=== PATIENT | male | born 1950 | race Caucasian/White ===

== ENCOUNTER 2016-09-16 08:20 | Inpatient (IN) ==
--- NOTE | 2016-09-16 08:26 | Emergency Department Note ---
Weakness HPI - General Chief complaint: Weakness Stated complaint: Weakness Source: patient Mode of arrival: ambulatory Limitations: no limitations - Related Data Home Medications Medication Instructions Recorded Confirmed ibuprofen PO .COMPLEX PRN 11/03/15 09/07/16 Previous Rx's Medication Instructions Recorded Compression Stockings #2 each 02/19/16 amlodipine 10 mg tablet 10 mg PO QDAY 90 Days 08/24/16 lisinopril 10 mg tablet 10 mg PO QDAY 90 Days 08/24/16 tadalafil 5 mg tablet 5 mg PO ONCE #30 tab 09/08/16 Allergies Allergy/AdvReac Type Severity Reaction Status Date / Time Amoxicillin [From Augmentin] AdvReac jittery Verified 09/16/16 08:25 clavulanic acid AdvReac jittery Verified 09/16/16 08:25 [From Augmentin] narcotics AdvReac lightheaded Uncoded 09/07/16 11:36 Past Medical History - Past Medical History Medical history: Reports: hypertension, other (Hyperkalemia, chronic headaches, Ed, BPH, hypertension, gout,) Surgical history ED: Reports: non-contributory Family history: Reports: CAD/TX (father), diabetes (father mother), hypertension (father), CVA/Stroke (father) - Social History smoking status: Former smoker Alcohol use: Reports: Occasionally Drug use: Reports: none Physical Exam - General Limitations: no limitations Course Vital Signs Temperature 98.7 F 09/16/16 08:21 Pulse Rate 120 H 09/16/16 08:21 Respiratory Rate 14 09/16/16 08:21 Blood Pressure 127/86 09/16/16 08:21 Pulse Oximetry (%) 96 09/16/16 08:21 Temperature 98.7 F 09/16/16 08:21 Pulse Rate 120 H 09/16/16 08:21 Respiratory Rate 14 09/16/16 08:21 Blood Pressure 127/86 09/16/16 08:21 Pulse Oximetry (%) 96 09/16/16 08:21 Disposition Pt seen by EMBEDDED SOFTWARE DEVELOPMENT ENGINEER/PA only: No Referrals: Cal Leiva MD [Primary Care Provider] -
[2016-09-16] MEDS ORDERED: 0.9 % SODIUM CHLORIDE 1,000 ML IV ONE ×3 (08:59→13:47)
[2016-09-16 10:06] LABS: ALT/SGPT 20 U/l (0-40); Albumin 4.4 gm/dL (3.2-5.2); Albumin/Globulin Ratio 1.8 (1.0-2.3); Alkaline Phosphatase 87 U/L (39-117); Blood Urea Nitrogen 26 mg/dl (8-23)
[2016-09-16 10:11] LABS: C-Reactive Protein 29.1 mg/dl (0.0-0.8)
[2016-09-16 10:13] LABS: Mean Cell Volume 83.7 fL (80.0-100.0); Mean Corpuscular Hemoglobin 27.6 pg (26.0-34.0); Platelet Count 204 K/mcL (140-440); RBC 5.35 M/mcL (4.50-5.90); Red Cell Distribution Width 13.7 % (11.5-14.5)
[2016-09-16 10:46] LABS: Band Neutrophils % 11 % (0-10); Lymphocytes % 7 % (15-49); Monocytes % (Manual) 8 % (1-12); Platelet Estimate NORMAL (NORMAL); RBC Morphology NORMAL (NORMAL); Segmented Neutrophils % 74 % (38-78)
--- NOTE | 2016-09-16 10:56 | Cat Scan Report ---
CLINICAL INFORMATION: Left lower quadrant pain COMPARISON: None. TECHNIQUE: 2.5 mm helical slices were obtained from the mid heart through the subtrochanteric regions. Following reconstruction, 2.5 mm sagittal, coronal and axial reformatted images were processed and reviewed at bone, lung and soft tissue windows. FINDINGS: Lung bases show no abnormality - no effusion. Visualized heart is unremarkable. Images through the abdomen show the noncontrasted gallbladder and bile ducts, liver, both adrenal glands, spleen, pancreas and aorta are normal in size, configuration and attenuation without focal lesion. Both noncontrasted kidneys are normal and symmetric in size, position, configuration and attenuation: The right is 11.6 x 4.8 cm and the left is 11.7 x 4.9 cm. There are no solid/cystic lesions in the noncontrasted kidneys and no evidence of stone or hydronephrosis. The upper collecting systems and ureters are normal. Images through the pelvis show massive enlargement of the prostate spanning 10.2 x 8 x 11 cm. Mild diffuse wall thickening and urinary bladder is compatible chronic bladder outlet obstruction. There is a 17 mm stellate stone within the left bladder base and adjacent 6 mm bladder stone. Multiple sigmoid diverticuli noted, but no definite CT evidence for diverticulitis. The remaining colon, including the appendix, small bowel and stomach are grossly normal. There is a 7.5 cm right inguinal hernia containing only mesenteric fat. Bone windows show only degenerative changes in the lumbar spine - no focal osseous lesion IMPRESSION: 1. Sigmoid diverticulosis, but no CT evidence for diverticulitis. Mild early diverticulitis may be CT occult 2. Massive prostate enlargement with mild diffuse urinary bladder wall thickening suggesting chronic bladder outlet obstruction. There are two stones within the urinary bladder, 17 mm and 6 mm respectively. Suspect this may be the etiology of patient's pain Interpreted and Authenticated by: Golden Garcia 09/16/16
--- NOTE | 2016-09-16 11:52 | Emergency Department Note ---
Weakness HPI - General Source: patient Mode of arrival: ambulatory Limitations: no limitations <Stewart Oneil - Last Filed: 09/16/16 19:40> <Zaheer Edmond - Last Filed: 09/17/16 01:48> - General Chief complaint: Weakness Stated complaint: Weakness Time Seen by Provider: 09/16/16 08:30 - History of Present Illness HPI Narrative: This is a 66-year-old male who presents today with abdominal pain in the stomach area left lower quadrant, and weakness for the last 5 days. He describes fevers and chills during this time, significant decrease in appetite but no nausea or vomiting. He describes pain on drinking even small amounts of fluids. (Stewart Oneil) - Related Data Previous Rx's Medication Instructions Recorded amlodipine 10 mg tablet 10 mg PO QDAY 90 Days 08/24/16 lisinopril 10 mg tablet 10 mg PO QDAY 90 Days 08/24/16 Allergies Allergy/AdvReac Type Severity Reaction Status Date / Time Amoxicillin [From Augmentin] AdvReac jittery Verified 09/16/16 08:25 clavulanic acid AdvReac jittery Verified 09/16/16 08:25 [From Augmentin] narcotics AdvReac lightheaded Uncoded 09/07/16 11:36 Review of Systems All systems ED: reviewed and negative except as stated. Constitutional: Denies: fever, chills Cardiovascular: Denies: chest pain, dyspnea on exertion, edema Respiratory: Denies: cough, dyspnea Gastrointestinal: Reports: abdominal pain, diarrhea, constipation (last bowel movement 3 days ago) Genitourinary: Reports: dysuria, hematuria <Stewart Oneil - Last Filed: 09/16/16 19:40> Past Medical History - Past Medical History Medical history: Reports: hypertension, other (Hyperkalemia, chronic headaches, Ed, BPH, hypertension, gout,) Surgical history ED: Reports: non-contributory, other (hydrocele) - Social History smoking status: Former smoker Alcohol use: Reports: Occasionally Drug use: Reports: none <Stewart Oneil - Last Filed: 09/16/16 19:40> Physical Exam - General Limitations: no limitations General appearance: alert, in no apparent distress - Head Head exam: atraumatic, normocephalic - Eye Eye exam: Present: normal appearance, PERRL, EOMI. Absent: scleral icterus, conjunctival injection - ENT ENT exam: mucous membranes moist - Neck Neck exam: Present: normal inspection, trachea midline. Absent: lymphadenopathy - Chest Chest inspection: Present: symmetric chest wall rise - Respiratory Respiratory exam: Present: normal lung sounds bilaterally. Absent: respiratory distress - Cardiovascular Cardiovascular exam: Present: regular rate, normal rhythm - Abdominal Exam Abdominal exam: Present: soft, tenderness. Absent: rebound, rigidity Abdominal tenderness: Present: LLQ (without peritoneal signs), epigastrium, moderate - Neurological Exam Neurological exam: Present: alert, oriented X3 - Skin Skin exam: Present: warm (febrile feeling), dry, intact <Stewart Oneil - Last Filed: 09/16/16 19:40> Course <Stewart Oneil - Last Filed: 09/16/16 19:40> <Zaheer Edmond - Last Filed: 09/17/16 01:48> Course Narrative: Patient was interviewed and examined by myself. I agree with the documentation herein, including assessment and plans, as recorded by Stewart Oneil, MS-IV. (Zaheer Edmond) Vital Signs Temperature 98.7 F 09/16/16 08:21 Pulse Rate 120 H 09/16/16 08:21 Respiratory Rate 14 09/16/16 08:21 Blood Pressure 127/86 09/16/16 08:21 Pulse Oximetry (%) 96 09/16/16 08:21 Temperature 100.8 F H 09/16/16 23:44 Pulse Rate 101 H 09/16/16 23:44 Respiratory Rate 16 09/16/16 23:44 Blood Pressure 137/92 09/16/16 23:44 Pulse Oximetry (%) 92 09/16/16 23:44 Weakness - Lab Data Result diagrams: 09/16/16 09:00 09/16/16 09:00 <Stewart Oneil - Last Filed: 09/16/16 19:40> - Lab Data Result diagrams: 09/16/16 09:00 09/16/16 09:00 <Zaheer Edmond - Last Filed: 09/17/16 01:48> - Lab Data Lab Results 09/16/16 09/16/16 09/16/16 Range/Units 09:00 09:00 09:00 WBC 17.4 H (4.5-11.0) K/mcL RBC 5.35 (4.50-5.90) M/mcL Hgb 14.8 (13.5-16.5) g/dL Hct 44.7 (41.0-55.0) % POC Hct 44.0 (41.0-55.0) % MCV 83.7 (80.0-100.0) fL MCH 27.6 (26.0-34.0) pg MCHC 33.0 (31.0-36.0) g/dL RDW 13.7 (11.5-14.5) % Plt Count 204 (140-440) K/mcL MPV 9.7 (7.4-10.4) fL Total Counted 100 Seg Neutrophils % 74 (38-78) % Band Neutrophils % 11 H (0-10) % Lymphocytes % 7 L (15-49) % Monocytes % (Manual) 8 (1-12) % Platelet Estimate Normal (NORMAL) RBC Morphology Normal (NORMAL) VBG Lactic Acid (0.5-2.2) mmol/L POC Sodium 137 (133-145) mmol/L Sodium 137 (133-145) mmol/L POC Potassium 4.0 (3.3-5.1) mmol/L Potassium 3.9 (3.3-5.1) mmol/L POC Chloride 102 (96-108) mmol/L Chloride 97 (96-108) mmol/L Carbon Dioxide 19 L (22-30) mmol/L POC Total CO2 23 (22-30) mmol/L Anion Gap 21.0 H (8-16) POC BUN 26 H (8-23) mg/dl BUN 26 H (8-23) mg/dl Creatinine 1.6 H (0.7-1.2) mg/dl POC Creatinine 1.8 H (0.7-1.2) mg/dl GFR Calculation 44 Glucose 182 H (70-105) mg/dL POC Glucose 188 H (70-105) mg/dL Calcium 10.0 (8.6-10.4) mg/dl POC WB Ioniz Calcium 1.26 (1.16-1.32) mmol/L Total Bilirubin 1.7 H (0.0-1.0) mg/dL AST 19 (0-37) U/l ALT 20 (0-40) U/l Alkaline Phosphatase 87 (39-117) U/L C-Reactive Protein 29.1 H (0.0-0.8) mg/dl Total Protein 6.9 (5.9-8.4) gm/dL Albumin 4.4 (3.2-5.2) gm/dL Globulin 2.5 (2.2-3.7) gm/dL Albumin/Globulin Ratio 1.8 (1.0-2.3) Triglycerides (<150) mg/dl Cholesterol (<200) mg/dl LDL Cholesterol (SEE CHART) mg/dl Non-HDL Cholesterol (LDL TARGET+30) HDL Cholesterol (>40) mg/dl Lipase (7-60) U/L Procalcitonin (<0.10) ng/mL Urine Color Urine Appearance Urine pH (5.0-9.0) Ur Specific [place] (1.000-1.035) Urine Protein (NEG) mg/dL Urine Glucose (UA) (NEG) mg/dL Urine Ketones (NEG) mg/dL Urine Occult Blood (<0.03) mg/dL Urine Nitrate (NEG) Urine Bilirubin (NEG) mg/dL Urine Urobilinogen (NEG) mg/dL Ur Leukocyte Esterase (NEG) /uL Urine RBC (0-1) /hpf Urine WBC (0-4) /hpf Ur Squamous Epith Cells (0-4) /hpf Urine Bacteria (0) /hpf Hyaline Casts (0-2) /lpf Urine Mucus (0) /hpf Ur Culture Indicated? 09/16/16 09/16/16 09/16/16 Range/Units 09:00 09:19 09:19 WBC (4.5-11.0) K/mcL RBC (4.50-5.90) M/mcL Hgb (13.5-16.5) g/dL Hct (41.0-55.0) % POC Hct (41.0-55.0) % MCV (80.0-100.0) fL MCH (26.0-34.0) pg MCHC (31.0-36.0) g/dL RDW (11.5-14.5) % Plt Count (140-440) K/mcL MPV (7.4-10.4) fL Total Counted Seg Neutrophils % (38-78) % Band Neutrophils % (0-10) % Lymphocytes % (15-49) % Monocytes % (Manual) (1-12) % Platelet Estimate (NORMAL) RBC Morphology (NORMAL) VBG Lactic Acid 1.2 (0.5-2.2) mmol/L POC Sodium (133-145) mmol/L Sodium (133-145) mmol/L POC Potassium (3.3-5.1) mmol/L Potassium (3.3-5.1) mmol/L POC Chloride (96-108) mmol/L Chloride (96-108) mmol/L Carbon Dioxide (22-30) mmol/L POC Total CO2 (22-30) mmol/L Anion Gap (8-16) POC BUN (8-23) mg/dl BUN (8-23) mg/dl Creatinine (0.7-1.2) mg/dl POC Creatinine (0.7-1.2) mg/dl GFR Calculation Glucose (70-105) mg/dL POC Glucose (70-105) mg/dL Calcium (8.6-10.4) mg/dl POC WB Ioniz Calcium (1.16-1.32) mmol/L Total Bilirubin (0.0-1.0) mg/dL AST (0-37) U/l ALT (0-40) U/l Alkaline Phosphatase (39-117) U/L C-Reactive Protein (0.0-0.8) mg/dl Total Protein (5.9-8.4) gm/dL Albumin (3.2-5.2) gm/dL Globulin (2.2-3.7) gm/dL Albumin/Globulin Ratio (1.0-2.3) Triglycerides 113 (<150) mg/dl Cholesterol 179 (<200) mg/dl LDL Cholesterol 120 H (SEE CHART) mg/dl Non-HDL Cholesterol 142 H (LDL TARGET+30) HDL Cholesterol 37 L (>40) mg/dl Lipase 22 (7-60) U/L Procalcitonin 4.10 (<0.10) ng/mL Urine Color Urine Appearance Urine pH (5.0-9.0) Ur Specific [place] (1.000-1.035) Urine Protein (NEG) mg/dL Urine Glucose (UA) (NEG) mg/dL Urine Ketones (NEG) mg/dL Urine Occult Blood (<0.03) mg/dL Urine Nitrate (NEG) Urine Bilirubin (NEG) mg/dL Urine Urobilinogen (NEG) mg/dL Ur Leukocyte Esterase (NEG) /uL Urine RBC (0-1) /hpf Urine WBC (0-4) /hpf Ur Squamous Epith Cells (0-4) /hpf Urine Bacteria (0) /hpf Hyaline Casts (0-2) /lpf Urine Mucus (0) /hpf Ur Culture Indicated? 09/16/16 09/16/16 Range/Units 14:07 14:28 WBC (4.5-11.0) K/mcL RBC (4.50-5.90) M/mcL Hgb (13.5-16.5) g/dL Hct (41.0-55.0) % POC Hct (41.0-55.0) % MCV (80.0-100.0) fL MCH (26.0-34.0) pg MCHC (31.0-36.0) g/dL RDW (11.5-14.5) % Plt Count (140-440) K/mcL MPV (7.4-10.4) fL Total Counted Seg Neutrophils % (38-78) % Band Neutrophils % (0-10) % Lymphocytes % (15-49) % Monocytes % (Manual) (1-12) % Platelet Estimate (NORMAL) RBC Morphology (NORMAL) VBG Lactic Acid 1.1 (0.5-2.2) mmol/L POC Sodium (133-145) mmol/L Sodium (133-145) mmol/L POC Potassium (3.3-5.1) mmol/L Potassium (3.3-5.1) mmol/L POC Chloride (96-108) mmol/L Chloride (96-108) mmol/L Carbon Dioxide (22-30) mmol/L POC Total CO2 (22-30) mmol/L Anion Gap (8-16) POC BUN (8-23) mg/dl BUN (8-23) mg/dl Creatinine (0.7-1.2) mg/dl POC Creatinine (0.7-1.2) mg/dl GFR Calculation Glucose (70-105) mg/dL POC Glucose (70-105) mg/dL Calcium (8.6-10.4) mg/dl POC WB Ioniz Calcium (1.16-1.32) mmol/L Total Bilirubin (0.0-1.0) mg/dL AST (0-37) U/l ALT (0-40) U/l Alkaline Phosphatase (39-117) U/L C-Reactive Protein (0.0-0.8) mg/dl Total Protein (5.9-8.4) gm/dL Albumin (3.2-5.2) gm/dL Globulin (2.2-3.7) gm/dL Albumin/Globulin Ratio (1.0-2.3) Triglycerides (<150) mg/dl Cholesterol (<200) mg/dl LDL Cholesterol (SEE CHART) mg/dl Non-HDL Cholesterol (LDL TARGET+30) HDL Cholesterol (>40) mg/dl Lipase (7-60) U/L Procalcitonin (<0.10) ng/mL Urine Color Yellow Urine Appearance Cloudy Urine pH 5.0 (5.0-9.0) Ur Specific [place] 1.026 (1.000-1.035) Urine Protein 100 A (NEG) mg/dL Urine Glucose (UA) Negative (NEG) mg/dL Urine Ketones 20 A (NEG) mg/dL Urine Occult Blood 0.2 A (<0.03) mg/dL Urine Nitrate Neg (NEG) Urine Bilirubin Neg (NEG) mg/dL Urine Urobilinogen Neg (NEG) mg/dL Ur Leukocyte Esterase Neg (NEG) /uL Urine RBC < 1 (0-1) /hpf Urine WBC 4 (0-4) /hpf Ur Squamous Epith Cells 0 (0-4) /hpf Urine Bacteria 0 (0) /hpf Hyaline Casts 1 (0-2) /lpf Urine Mucus Many A (0) /hpf Ur Culture Indicated? No Disposition Pt seen by SECURITY INSTALLATION SALES TECHNICIAN/PA only: No <Stewart Oneil - Last Filed: 09/16/16 19:40> <Zaheer Edmond - Last Filed: 09/17/16 01:48> Clinical Impression: Diverticulosis of intestine, Sepsis Disposition: Xfer As Inpt ([facility]) Condition: Undetermined
[2016-09-16] MEDS ORDERED: metroNIDAZOLE 500 MG/100 ML BAG IV ONE (12:20)
[2016-09-16] MEDS ORDERED: CIPROFLOXACIN 400 MG/200 ML BAG IV ONE (12:20)
[2016-09-16 12:32] LABS: HDL Cholesterol 37 mg/dl (>40); LDL Cholesterol,Calculated 120 mg/dl (SEE CHART); Lipase 22 U/L (7-60)
--- NOTE | 2016-09-16 12:54 | XRay Report ---
CLINICAL INFORMATION: Sepsis COMPARISON: None. FINDINGS: Heart size, mediastinal pulmonary vessels are normal. There is minor bibasilar atelectasis, but no apryl infiltrate or effusion. Bones and soft tissues are normal IMPRESSION: Minor bibasilar atelectasis Interpreted and Authenticated by: Golden Garcia 09/16/16
[2016-09-16] MEDS ORDERED: 0.9 % SODIUM CHLORIDE 2,000 ML IV ONE (13:43)
[2016-09-16] MEDS ORDERED: ACETAMINOPHEN 325 MG TABLET PO ONE (13:58)
--- NOTE | 2016-09-16 15:35 | Ultrasound Report ---
CLINICAL INFORMATION: Right upper quadrant pain and fever COMPARISON: None. FINDINGS: Liver is diffusely hyperechoic compatible with fatty change. No focal hepatic lesions. Gallbladder and bile ducts are normal: CBD is 7 mm. The pancreas is unremarkable. IMPRESSION: Hyperechoic liver compatible with fatty change. Gallbladder, bile ducts and pancreas are normal Interpreted and Authenticated by: Golden Garcia 09/16/16
[2016-09-16 15:45] LABS: Appearance,Urine CLOUDY; Bacteria,Urine 0 /hpf (0); Bilirubin,Urine NEG (NEG); Color,Urine YELLOW; Glucose,Urine (UA) NEGATIVE (NEG); Leukocyte Esterase,Urine NEG /uL (NEG); Mucus,Urine MANY /hpf (0); Nitrate,Urine NEG (NEG); Protein,Urine 100 mg/dL (NEG); Specific Gravity,Urine 1.026 (1.000-1.035); Urine Blood 0.2 mg/dL (<0.03); Urine Hyaline Cast 1 /lpf (0-2); Urine RBC < 1 /hpf (0-1); Urine Squamous Epithelial Cell 0 /hpf (0-4); Urine WBC 4 /hpf (0-4); Urobilinogen,Urine NEG (NEG)
[2016-09-16] MEDS ORDERED: NALOXONE HCL 0.4 MG/ML VIAL IV PRN (15:53)
[2016-09-16] MEDS ORDERED: oxyCODONE/APAP 5/325MG TABLET PO PRN (15:53)
[2016-09-16] MEDS ORDERED: VANCOMYCIN PER PHARMACY IV SCH (15:53)
[2016-09-16] MEDS ORDERED: PANTOPRAZOLE 40 MG TABLET PO SCH (15:53)
--- NOTE | 2016-09-16 16:49 | Internal Med History&Physical ---
Medical - H&P: HPI Patient information: Note initiated : 09/16/16 at 4:39 pm Service Date, if different from initiated Date: [] Patient: Golden Armendariz 66 y/o M admitted on 09/16/16 for Weakness. Chief Complaint: [] History of present illness: Mr. Armendariz is a 66 year old Male with h/o HTN presents to the ER today with symptoms of not feeling well since last Monday. The patient has had poor energy feeling tired, The patient reports abdominal pain in the epigastric region, which is burning and sharp. worse with food and or water consumption, better with not eating. He notes he has had nausea and vomiting associated with the pain. he admits to having fevers and chills over the last few days. The patient initially thought he would get over it and tried to rough it out, when today the symptoms kept getting worse he presented to the ER for further evaluation. The patient also has significantly In the ER he was tachycardic, had low grade fever, given his Abdominal pain, he underwent a CT Abdomen and pelvis which was neg for acute pathology, possible diverticulitis? His Chest x ray was neg, and ua was neg. the patient has a clear mental status, and supple neck, meningitis is unlikely. The patient had elevated pro calcitonin has been tachycardic in the ER,slightly tachypneic, and therefore was admitted to the hospital with diagnosis of possible sepsis, unknown etiology. The patient has an enlarged prostate which is causing his urinary symptoms. He does have increased frequency of urination as well as some discomfort when he passes urine. He denies any pelvic pain or anyburning or foul-smelling urine. The patient has some lower back pain. The patient admits that he was on a fishing trip 2 days ago before the symptoms started. he may have been exposed to mosquitoes during that time. The patient denies any tick bites, joint pain, skin rash,or any other acute symptoms. All systems: reviewed and no additional remarkable complaints except as stated ( as per hpi) Medical - H&P: PM Medical history: Medical History (Last Updated 09/16/16 @ 16:09 by Juliocesar Paul) Abnormal laboratory test (Acute) Hyperkalemia (Acute) Arthritis (Chronic) BPH (benign prostatic hyperplasia) (Chronic) Chronic headaches (Chronic) Daytime sleepiness (Chronic) Erectile dysfunction (Chronic) Gout (Chronic) History of tobacco use (Chronic) Hypertension, essential (Chronic) Joint pain (Chronic) Pitting edema (Chronic) Surgical history: Past Surgical History (Last Reviewed 09/07/16 @ 11:37 by Nicole Fontaine CMA) No pertinent past surgical history (Chronic) Pertinent family history: Family History (Last Reviewed 09/07/16 @ 11:37 by Nicole Fontaine CMA) Father Arthritis Diabetes Hypertension, essential Heart attack Stroke Mother Arthritis Diabetes Hypertension, essential Heart attack Family/Other Cancer Medical - H&P: Meds Home Medications Medication Instructions Recorded Confirmed Type Compression Stockings #2 each 02/19/16 09/07/16 Rx amlodipine 10 mg tablet 10 mg PO QDAY 90 Days 08/24/16 09/16/16 Rx lisinopril 10 mg tablet 10 mg PO QDAY 90 Days 08/24/16 09/16/16 Rx Allergies Allergy/AdvReac Type Severity Reaction Status Date / Time Amoxicillin [From Augmentin] AdvReac jittery Verified 09/16/16 08:25 clavulanic acid AdvReac jittery Verified 09/16/16 08:25 [From Augmentin] narcotics AdvReac lightheaded Uncoded 09/07/16 11:36 Medical - H&P: Exam - Constitutional Vitals: Temp Pulse Resp BP Pulse Ox 100.1 F H 97 H 16 118/88 96 09/16/16 15:53 09/16/16 15:34 09/16/16 15:53 09/16/16 15:53 09/16/16 15:53 Exam: GENERAL: The patient is alert, oriented, febrile, not in acute distress. VITAL SIGNS: reviewed, he is febrile, tachycardic, respirations 20, saturating 95% on room air, blood pressure is 145/90. HEENT: head is atraumatic, normocephalic no perioperative swelling, earing normal to conversation, oral mucosa normal but dry. NECK:supple No significant swelling anteriorly LUNGS:at entry is equal on both sides, no wheezing, crackles or rhonchi noted. The patient is able to speak full sentences,no accessory muscle use HEART:S1 and S2 heard, no rubs or gross murmurs, rate rhythm normal ABDOMEN: epigastric tenderness noted, otherwise soft abdomen, bowel sounds present, rectal exam shows enlarged prostate, mildly tender, but not boggy. EXTREMITIES: dry, no edema, no rash, no clubbing. NEUROLOGICAL: alert, oriented 3. moving all extremities, exam is grossly nonfocal. Cranial nerves normal PSYCHIATRIC: normal insight, not anxious or aggressive. SKIN: dry skin, no pallor, no icterus, no cyanosis. No urticaria Medical - H&P: Reslt - Labs CBC & Chem 7: 09/16/16 09:00 09/16/16 09:00 - Impressions x-ray chest reveals bibasilar practices, no nfiltrates. CT abdomen and pelvis reviewed. Right upper quadrant ultrasound negative for gallbladder etiology. Medical - H&P: A/P - Narrative A/P Narrative: A/P Sepsis: source unknown, given elevated procalcitonin likely bacterial, lungs neg , ua neg, ABdomen CT is neg, possible early diverticulitis? prosatitis ? although prostate exam was normal, and ua is neg, the prostate is very enlarged and difficult to palpate. He does not seem to have NURSING STAFFING COORDINATOR source. ALternatively he may have picked up a tick borne / viral illness during his camping trip. WIll treat for possible diverticulits/ prostatis for now with IV cipro and Flagyl, Cover with Vanco for now till cultures are negative. The patient ahs some back pain which is chr but has had some exacerbation over 1 week. Consider MRI LS spine if patient continues not to respond to present treatment. Lactic acid is normal, BPH/ severely enlarged prostate: Noted on CT Scan, planned for prostate biopsy, its likely this is the source of infection and given its huge size the ua is not affected. Plan to treat with meds with good Prostate penentration. HTN: Hold bp meds for now and monitor, Resume once bp stable. DVT: hep sq Diet regular Full code. Medical - H&P: Qual - VTE Deep Vein Thrombosis/Pulmonary Embolism Present on Admission: No
[2016-09-16] MEDS: PANTOPRAZOLE 40 MG VIAL IV SCH (17:13)
[2016-09-16] MEDS: VANCOMYCIN 1,500 MG in 0.9 % SODIUM CHLORIDE 500 ML IV SCH (17:14)
[2016-09-16] MEDS: IPRATROPIUM/ALBUTEROL 3 ML AMPUL.NEB NEB SCH (20:15)
[2016-09-16] MEDS: 0.9 % SODIUM CHLORIDE 1,000 ML IV SCH (21:32)
[2016-09-16] MEDS: CIPROFLOXACIN 400 MG/200 ML BAG IV SCH (21:36)
[2016-09-16] MEDS: DOCUSATE SODIUM 100 MG CAPSULE PO SCH (21:37)
[2016-09-16] MEDS: HEPARIN 5,000 UNIT/ML VIAL SQ SCH (21:37)
[2016-09-16] MEDS: amLODIPine 10 MG TABLET PO SCH (21:38)
[2016-09-16] MEDS ORDERED: amLODIPine 5 MG TABLET ONE (21:40)
[2016-09-16] MEDS: metroNIDAZOLE 500 MG/100 ML BAG IV SCH (23:09)
[2016-09-17] MEDS: IPRATROPIUM/ALBUTEROL 3 ML AMPUL.NEB NEB SCH ×4 (01:48→21:26)
[2016-09-17] MEDS: 0.9 % SODIUM CHLORIDE 1,000 ML IV SCH ×3 (03:38→16:34)
[2016-09-17] MEDS: VANCOMYCIN 1,500 MG in 0.9 % SODIUM CHLORIDE 500 ML IV SCH ×2 (04:34→16:44)
[2016-09-17 06:17] LABS: Basophils # (Auto) 0 K/mcL (0.0-0.3); Basophils % (Auto) 0.2 % (0.0-2.0); Eosinophils # (Auto) 0.1 K/mcL (0.0-0.7); Eosinophils % (Auto) 0.6 % (0.0-7.0); Granulocytes % (Auto) 81.9 % (38.0-78.0); Lymphocytes # (Auto) 1.3 K/mcL (1.5-4.8); Lymphocytes % (Auto) 9.8 % (15.5-49.0); Mean Cell Volume 83.2 fL (80.0-100.0); Mean Corpuscular HGB Conc 33.3 g/dL (31.0-36.0); Mean Corpuscular Hemoglobin 27.7 pg (26.0-34.0); Monocytes % (Auto) 7.5 % (1.0-12.0); Platelet Count 189 K/mcL (140-440); RBC 4.52 M/mcL (4.50-5.90); Red Cell Distribution Width 14.1 % (11.5-14.5)
[2016-09-17] MEDS: metroNIDAZOLE 500 MG/100 ML BAG IV SCH ×3 (06:48→23:10)
[2016-09-17 07:01] LABS: ALT/SGPT 15 U/l (0-40); Albumin 3.3 gm/dL (3.2-5.2); Albumin/Globulin Ratio 1.1 (1.0-2.3); Alkaline Phosphatase 70 U/L (39-117); Amylase 31 U/L (28-100); Bilirubin,Direct 0.3 mg/dL (0.0-0.3); Blood Urea Nitrogen 14 mg/dl (8-23); Gamma Glutamyl Transpeptidase 40 U/L (8-61); Lipase 35 U/L (7-60); Magnesium 1.6 mg/dL (1.6-2.5); Uric Acid 6.6 mg/dL (2.5-8.0)
[2016-09-17] MEDS ORDERED: MAGNESIUM SULFATE 2 GM/50 ML BAG IV ONE (07:54)
[2016-09-17] MEDS: ACETAMINOPHEN 325 MG TABLET PO PRN ×3 (08:45→21:41)
--- NOTE | 2016-09-17 08:45 | Internal Med Progress Note ---
Medical - PN: Subj Patient information: Note initiated : 09/17/16 at 8:42 am Service Date, if different from initiated Date: [] Patient: Golden Armendariz 66 y/o M admitted on 09/16/16 for Weakness. Chief Complaint: [] Interval history: Mr. Armendariz is a 66 year old Male with h/o HTN presents to the ER today with symptoms of not feeling well since last Monday. The patient has had poor energy feeling tired, The patient reports abdominal pain in the epigastric region, which is burning and sharp. worse with food and or water consumption, better with not eating. He notes he has had nausea and vomiting associated with the pain. he admits to having fevers and chills over the last few days. The patient initially thought he would get over it and tried to rough it out, when today the symptoms kept getting worse he presented to the ER for further evaluation. The patient also has significantly In the ER he was tachycardic, had low grade fever, given his Abdominal pain, he underwent a CT Abdomen and pelvis which was neg for acute pathology, possible diverticulitis? His Chest x ray was neg, and ua was neg. the patient has a clear mental status, and supple neck, meningitis is unlikely. The patient had elevated pro calcitonin has been tachycardic in the ER,slightly tachypneic, and therefore was admitted to the hospital with diagnosis of possible sepsis, unknown etiology. The patient has an enlarged prostate which is causing his urinary symptoms. He does have increased frequency of urination as well as some discomfort when he passes urine. He denies any pelvic pain or anyburning or foul-smelling urine. The patient has some lower back pain. The patient admits that he was on a fishing trip 2 days ago before the symptoms started. he may have been exposed to mosquitoes during that time. The patient denies any tick bites, joint pain, skin rash,or any other acute symptoms. 09/17: Pt seen examined, no acute overnight events, did not sleep well, but this is a chr issue for him because he has to go to the bathroom every hour or every other hour, the patient has had this issue for a long time and notes that only cialis helps him a bit, but that is not given to him by his insurance company. Wanting to go home today, but educated that given his high grade fevers and that he is still having a low grade temp, its not safe for discharge so soon. Would monitor him atleast another day or two and wait for microbiology to be neg before we can discharge him. Pt verbalized understanding. Otherwise he still reports some pain in the epigastric region. Amyalse ,lipase is neg, but he has been on high doses of pain meds for his arthritis. educated to not take NSAIDs, on PPI for now. Pertinent ROS: Denies headache, dizziness Denies chest pain, palpitations Denies cough or shortness of breath present epigastric abdominal pain, No nausea or vomiting. - Constitutional Vitals: Vital Signs Temp Pulse Resp BP Pulse Ox 99.2 F H 90 16 130/82 94 09/17/16 04:11 09/17/16 04:11 09/17/16 04:11 09/17/16 04:11 09/17/16 04:11 Period Temp Pulse Resp BP Sys/Cintron Pulse Ox Last 24 Hr 99.2 F-100.8 F 90-104 16-16 114-140/78-109 92-96 Intake and Output 09/16/16 09/17/16 09/17/16 21:59 05:59 13:59 Intake Total 1780 / 1780 1482 / 1482 500 / 500 Output Total 725 / 725 1000 / 1000 275 / 275 Balance 1055 / 1055 482 / 482 225 / 225 Weight 250 lb Intake & Output: Intake & Output 09/16/16 09/17/16 09/17/16 21:59 05:59 13:59 Intake Total 1780 / 1780 1482 / 1482 500 / 500 Output Total 725 / 725 1000 / 1000 275 / 275 Balance 1055 / 1055 482 / 482 225 / 225 Weight 250 lb Intake: IV 1600 / 1600 1212 / 1212 500 / 500 Sodium Chloride 0.9% 1, 1100 / 1100 912 / 912 000 ml @ 150 mls/hr IV . Q6H40M [facility] Rx#:[id number] Vancomycin 1,500 mg In 500 / 500 500 / 500 Sodium Chloride 0.9% 500 ml @ 333.3 mls/hr IV Q12H [facility] Rx#:[id number] Oral 180 / 180 270 / 270 Output: Void Amount 625 / 625 1000 / 1000 275 / 275 Urine/Stool Mix 100 / 100 Other: Meal Dinner Percent of Meal Consumed 50% Feeding Ability Assist with Tray Set Up # Voids 1 # Bowel Movements 1 Exam: Constitutional; Afebrile, cooperative, alert, not in distress. Eyes- No icterus, , No periorbital swelling Ears- Ext ear normal, hearing normal to conversation. Neck- Midline trachea, supple Respiratory system: Air Entry equal on both sides, No crackles or wheezing, no rhonchi. CVS- Rate rhythm regular, S1,S2 heard, no gallop, no rub. Abdomen- Soft mild tenderness in epigastric region of the abdomen, no organomegaly, no tenderness, no guarding or rigidity, PURCHASING/RECEIVING- AOOx3, moving all extremities, no gross focal deficit noted. Medical - PN: Obj Da - Labs CBC & Chem 7: 09/17/16 03:55 09/17/16 03:55 Labs: Abnormal Lab Results 09/17/16 09/17/16 03:55 03:55 WBC 13.6 H Hgb 12.5 L Hct 37.6 L Gran % 81.9 H Lymph % (Auto) 9.8 L Gran # 11.1 H Lymph # (Auto) 1.3 L Gilliam # (Auto) 1.0 H Carbon Dioxide 17 L Anion Gap 17.0 H Creatinine 1.3 H Glucose 117 H Phosphorus 1.8 L Total Bilirubin 1.7 H Meds: Medications Acetaminophen (Tylenol) 650 mg PO Q6HP PRN PRN Reason: PAIN/FEVER > 101 Albuterol/Ipratropium (Duoneb) 3 ml NEB Q6HRT [facility] Last Admin: 09/17/16 06:50 Dose: Not Given Amlodipine Besylate (Norvasc) 10 mg PO HS [facility] Last Admin: 09/16/16 21:38 Dose: Not Given Docusate Sodium (Colace) 100 mg PO BID [facility] Last Admin: 09/16/16 21:37 Dose: Not Given Heparin Sodium (Porcine) (Heparin) 5,000 unit SQ Q12 [facility] Last Admin: 09/16/16 21:37 Dose: 5,000 unit Sodium Chloride (Sodium Chloride 0.9%) 1,000 mls @ 150 mls/hr IV .Q6H40M [facility] Last Admin: 09/17/16 03:38 Dose: 150 mls/hr Ciprofloxacin (Cipro) 400 mg in 200 mls @ 200 mls/hr IV Q12H [facility] Last Infusion: 09/16/16 22:36 Dose: Infused Metronidazole (Flagyl) 500 mg in 100 mls @ 100 mls/hr IV Q8H [facility] Last Admin: 09/17/16 06:48 Dose: 100 mls/hr Vancomycin HCl 1,500 mg/ (Sodium Chloride) 500 mls @ 333.3 mls/hr IV Q12H [facility] Last Infusion: 09/17/16 06:21 Dose: Infused Magnesium Sulfate (Magnesium Sulfate) 2 gm in 50 mls @ 50 mls/hr IV ONCE ONE Stop: 09/17/16 08:53 Naloxone HCl (Narcan) 0.1 mg IV Q2MIN PRN PRN Reason: Opiate Reversal Ondansetron HCl (Zofran) 4 mg IV Q4HP PRN PRN Reason: Nausea And Vomiting Oxycodone/Acetaminophen (Percocet 5-325 Mg) 1 tab PO Q4HP PRN PRN Reason: Pain Pantoprazole Sodium (Protonix) 40 mg IV BIDAC [facility] Last Admin: 09/16/16 17:13 Dose: Not Given Potassium/Phosphorus/Sodium (Neutra Phos) 1 packet PO BID [facility] Stop: 09/21/16 21:01 Vancomycin HCl (Vancomycin Per Pharmacy) 1 order IV [facility] Medical - PN: A/P - Time Spent With Patient Total time spent is greater than 50% in coordination of care (as documented) at patient's floor/unit and/or counseling patient: - Narrative A/P Narrative: A/P Sepsis: source unknown,elevated prolactin level, likely prostatitis vs viral vs early diverticulitis. IV antibiotics for now, await cultures results, neg so far. IV cipro, flagyl and vanco for now. Descalate based on response/ culture results. Epigastric pain: worse with eating, high doses of NSAID use, likely gastritis, improved from yesterday, on IV ppi, will likely need PPI at discharge. BPH/ severely enlarged prostate: Noted on CT Scan, planned for prostate biopsy, its likely that this is the source of infection and given its huge size the ua is not affected. Monitor for now. HTN: STable, resume amlodipine, hold lisinopril, (resume if bp stable by tomorrow) DVT: hep sq Diet regular Full code. Medical - PN: Qual - VTE Deep Vein Thrombosis/Pulmonary Embolism Present on Admission: No
[2016-09-17] MEDS: PANTOPRAZOLE 40 MG VIAL IV SCH ×2 (08:48→16:43)
[2016-09-17] MEDS: CIPROFLOXACIN 400 MG/200 ML BAG IV SCH ×2 (09:31→21:13)
[2016-09-17] MEDS: NEUTRA PHOS 1 PACKET PO SCH ×2 (09:31→21:27)
[2016-09-17] MEDS: HEPARIN 5,000 UNIT/ML VIAL SQ SCH ×2 (09:31→21:26)
[2016-09-17] MEDS: DOCUSATE SODIUM 100 MG CAPSULE PO SCH ×2 (09:44→21:27)
[2016-09-17] MEDS: 0.9 % SODIUM CHLORIDE 10 ML SYRINGE IV SCH ×2 (14:18→21:27)
[2016-09-17] MEDS: ONDANSETRON 4 MG/2 ML VIAL IV PRN (15:40)
[2016-09-17] MEDS: amLODIPine 10 MG TABLET PO SCH (21:27)
[2016-09-18] MEDS: VANCOMYCIN 1,500 MG in 0.9 % SODIUM CHLORIDE 500 ML IV SCH ×2 (04:09→17:12)
[2016-09-18] MEDS: IPRATROPIUM/ALBUTEROL 3 ML AMPUL.NEB NEB SCH ×5 (04:15→23:59)
[2016-09-18] MEDS: 0.9 % SODIUM CHLORIDE 1,000 ML IV SCH ×2 (04:45→11:40)
[2016-09-18 05:07] LABS: Basophils # (Auto) 0 K/mcL (0.0-0.3); Basophils % (Auto) 0.3 % (0.0-2.0); Eosinophils # (Auto) 0.2 K/mcL (0.0-0.7); Eosinophils % (Auto) 2.1 % (0.0-7.0); Granulocytes % (Auto) 81.2 % (38.0-78.0); Lymphocytes % (Auto) 9.9 % (15.5-49.0); Mean Cell Volume 83.2 fL (80.0-100.0); Mean Corpuscular HGB Conc 32.9 g/dL (31.0-36.0); Mean Corpuscular Hemoglobin 27.4 pg (26.0-34.0); Monocytes # (Auto) 0.7 K/mcL (0.1-0.9); Monocytes % (Auto) 6.5 % (1.0-12.0); Platelet Count 192 K/mcL (140-440); RBC 3.89 M/mcL (4.50-5.90)
[2016-09-18 05:18] LABS: ALT/SGPT 13 U/l (0-40); Albumin 2.7 gm/dL (3.2-5.2); Alkaline Phosphatase 61 U/L (39-117); Bilirubin,Direct < 0.2 mg/dL (0.0-0.3); Blood Urea Nitrogen 10 mg/dl (8-23); Gamma Glutamyl Transpeptidase 36 U/L (8-61); Magnesium 1.8 mg/dL (1.6-2.5); Uric Acid 5.9 mg/dL (2.5-8.0)
[2016-09-18] MEDS: 0.9 % SODIUM CHLORIDE 10 ML SYRINGE IV SCH ×4 (07:00→21:50)
[2016-09-18] MEDS: metroNIDAZOLE 500 MG/100 ML BAG IV SCH ×2 (07:20→14:49)
[2016-09-18] MEDS: PANTOPRAZOLE 40 MG VIAL IV SCH ×2 (07:49→17:14)
[2016-09-18] MEDS: NEUTRA PHOS 1 PACKET PO SCH ×2 (09:31→21:50)
[2016-09-18] MEDS: HEPARIN 5,000 UNIT/ML VIAL SQ SCH ×2 (09:31→21:49)
[2016-09-18] MEDS: CIPROFLOXACIN 400 MG/200 ML BAG IV SCH ×2 (09:32→21:44)
[2016-09-18] MEDS: DOCUSATE SODIUM 100 MG CAPSULE PO SCH ×2 (09:33→21:48)
[2016-09-18] MEDS ORDERED: FUROSEMIDE 20 MG/2 ML VIAL IV ONE (09:48)
[2016-09-18] MEDS ORDERED: POTASSIUM PHOSPHATE 40 MEQ in DEXTROSE 5% IN WATER 500 ML IV ONE (09:48)
[2016-09-18] MEDS ORDERED: MAGNESIUM SULFATE 32.48 MEQ in DEXTROSE 5% IN WATER 50 ML IV ONE (09:48)
[2016-09-18] MEDS ORDERED: metroNIDAZOLE 500 MG/100 ML BAG IV SCH (14:00)
[2016-09-18] MEDS: ACETAMINOPHEN 325 MG TABLET PO PRN (16:08)
--- NOTE | 2016-09-18 18:50 | Internal Med Progress Note ---
Medical - PN: Subj Patient information: Note initiated : 09/18/16 at 6:41 pm Service Date, if different from initiated Date: [] Patient: Golden Armendariz 66 y/o M admitted on 09/16/16 for Weakness. Chief Complaint: [] Interval history: Mr. Armendariz is a 66 year old Male with h/o HTN presents to the ER today with symptoms of not feeling well since last Monday. The patient has had poor energy feeling tired, The patient reports abdominal pain in the epigastric region, which is burning and sharp. worse with food and or water consumption, better with not eating. He notes he has had nausea and vomiting associated with the pain. he admits to having fevers and chills over the last few days. The patient initially thought he would get over it and tried to rough it out, when today the symptoms kept getting worse he presented to the ER for further evaluation. The patient also has significantly In the ER he was tachycardic, had low grade fever, given his Abdominal pain, he underwent a CT Abdomen and pelvis which was neg for acute pathology, possible diverticulitis? His Chest x ray was neg, and ua was neg. the patient has a clear mental status, and supple neck, meningitis is unlikely. The patient had elevated pro calcitonin has been tachycardic in the ER,slightly tachypneic, and therefore was admitted to the hospital with diagnosis of possible sepsis, unknown etiology. The patient has an enlarged prostate which is causing his urinary symptoms. He does have increased frequency of urination as well as some discomfort when he passes urine. He denies any pelvic pain or any burning or foul-smelling urine. The patient has some lower back pain. The patient admits that he was on a fishing trip 2 days ago before the symptoms started. he may have been exposed to mosquitoes during that time. The patient denies any tick bites, joint pain, skin rash,or any other acute symptoms. 09/17: Pt seen examined, no acute overnight events, did not sleep well, but this is a chr issue for him because he has to go to the bathroom every hour or every other hour, the patient has had this issue for a long time and notes that only cialis helps him a bit, but that is not given to him by his insurance company. Wanting to go home today, but educated that given his high grade fevers and that he is still having a low grade temp, its not safe for discharge so soon. Would monitor him at least another day or two and wait for microbiology to be neg before we can discharge him. Pt verbalized understanding. Otherwise he still reports some pain in the epigastric region. Gayalsnas ,lipase is neg, but he has been on high doses of pain meds for his arthritis. educated to not take NSAIDs, on PPI for now. 09/18: Feels a bit better today, still with abdominal pain, across the upper abdomen and on the left side. Appetite remains decreased, has funny taste in his mouth, possibly a side effect of metronidazole. No nausea or vomiting. Again recounts difficulty with urination. States has tried Flomax in the past but that it did not work. Willing to give that another try. Had recurrent fever to 102 this afternoon. No cough, no sputum, no dyspnea, no rashes. - Constitutional Vitals: Vital Signs Temp Pulse Resp BP Pulse Ox 99.2 F H 88 20 158/99 97 09/18/16 16:53 09/18/16 04:00 09/18/16 15:47 09/18/16 15:47 09/18/16 15:47 Period Temp Pulse Resp BP Sys/Cintron Pulse Ox Last 24 Hr 97.0 F-102.2 F 80-100 16-24 127-158/84-100 91-97 Intake and Output 09/18/16 09/18/16 09/18/16 05:59 13:59 21:59 Intake Total 1579 / 1579 1294 / 1294 1309.0909 / 1309.0909 Output Total 550 / 550 2450 / 2450 1450 / 1450 Balance 1029 / 1029 -1156 / -1156 -140.9091 / -140.9091 Intake & Output: Intake & Output 09/18/16 09/18/16 09/18/16 05:59 13:59 21:59 Intake Total 1579 / 1579 1294 / 1294 1309.0909 / 1309.0909 Output Total 550 / 550 2450 / 2450 1450 / 1450 Balance 1029 / 1029 -1156 / -1156 -140.9091 / -140.9091 Intake: IV 1339 / 1339 1054 / 3953 587.9208 / 609.0909 Sodium Chloride 0.9% 1, 983 / 983 252 / 252 000 ml @ 150 mls/hr IV . Q6H40M [facility] Rx#:[id number] Vancomycin 1,500 mg In 56 / 56 444 / 444 Sodium Chloride 0.9% 500 ml @ 333.3 mls/hr IV Q12H [facility] Rx#:[id number] Oral 240 / 240 120 / 120 460 / 460 GI Tube Flush 120 / 120 240 / 240 Output: Urine Catheter Amount 200 / 200 Void Amount 550 / 550 2450 / 2450 1250 / 1250 Other: Meal Lunch Percent of Meal Consumed 100% Feeding Ability Independent # Voids 1 - Additional findings Additional findings: General: Laying in bed, talkative, no acute distress, spirits pretty good Chest: Clear to auscultation without rales or wheezes. Cardiovascular: Regular, distant, trace edema Abdomen: Obese, soft, mild tenderness across the upper abdomen and left side to left lower quadrant without guarding or rebound. Active bowel sounds. Neuro: Alert, oriented 3, moves all extremities equally. Medical - PN: Obj Da - Labs CBC & Chem 7: 09/18/16 04:10 09/18/16 04:10 Labs: Abnormal Lab Results 09/18/16 09/18/16 09/18/16 04:10 04:10 04:10 WBC RBC 3.89 L Hgb 10.6 L Hct 32.4 L Gran % 81.2 H Lymph % (Auto) 9.9 L Gran # 8.2 H Lymph # (Auto) 1.0 L Page # (Auto) Carbon Dioxide 20 L Anion Gap Creatinine Glucose 128 H Calcium 8.2 L Phosphorus 1.8 L Total Bilirubin Total Protein 5.3 L Albumin 2.7 L Vancomycin Trough 16.3 H 09/17/16 09/17/16 03:55 03:55 WBC 13.6 H RBC Hgb 12.5 L Hct 37.6 L Gran % 81.9 H Lymph % (Auto) 9.8 L Gran # 11.1 H Lymph # (Auto) 1.3 L Page # (Auto) 1.0 H Carbon Dioxide 17 L Anion Gap 17.0 H Creatinine 1.3 H Glucose 117 H Calcium Phosphorus 1.8 L Total Bilirubin 1.7 H Total Protein Albumin Vancomycin Trough Meds: Medications Acetaminophen (Tylenol) 650 mg PO Q6HP PRN PRN Reason: PAIN/FEVER > 101 Last Admin: 09/18/16 16:08 Dose: 650 mg Albuterol/Ipratropium (Duoneb) 3 ml NEB Q6HRT [facility] Last Admin: 09/18/16 13:16 Dose: Not Given Amlodipine Besylate (Norvasc) 10 mg PO HS [facility] Last Admin: 09/17/16 21:27 Dose: 10 mg Docusate Sodium (Colace) 100 mg PO BID [facility] Last Admin: 09/18/16 09:33 Dose: Not Given Heparin Sodium (Porcine) (Heparin) 5,000 unit SQ Q12 [facility] Last Admin: 09/18/16 09:31 Dose: 5,000 unit Ciprofloxacin (Cipro) 400 mg in 200 mls @ 200 mls/hr IV Q12H [facility] Last Infusion: 09/18/16 11:00 Dose: Infused Vancomycin HCl 1,500 mg/ (Sodium Chloride) 500 mls @ 333.3 mls/hr IV Q12H [facility] Last Admin: 09/18/16 17:12 Dose: 200 mls/hr Metronidazole (Flagyl) 500 mg in 100 mls @ 100 mls/hr IV Q8H [facility] Last Infusion: 09/18/16 16:00 Dose: Infused Naloxone HCl (Narcan) 0.1 mg IV Q2MIN PRN PRN Reason: Opiate Reversal Ondansetron HCl (Zofran) 4 mg IV Q4HP PRN PRN Reason: Nausea And Vomiting Last Admin: 09/17/16 15:40 Dose: 4 mg Oxycodone/Acetaminophen (Percocet 5-325 Mg) 1 tab PO Q4HP PRN PRN Reason: Pain Pantoprazole Sodium (Protonix) 40 mg IV BIDAC [facility] Last Admin: 09/18/16 17:14 Dose: 40 mg Potassium/Phosphorus/Sodium (Neutra Phos) 1 packet PO BID [facility] Stop: 09/21/16 21:01 Last Admin: 09/18/16 09:31 Dose: 1 packet Sodium Chloride (Saline Flush) 10 ml IV Q8 [facility] Last Admin: 09/18/16 14:41 Dose: 10 ml Vancomycin HCl (Vancomycin Per Pharmacy) 1 order IV UD [facility] Medical - PN: A/P - Narrative A/P Narrative: Sepsis: Undetermined source, possible sources include prostatitis or viral or early diverticulitis. Has elevated prolactin level. 1/4 bottles from original blood cultures now positive for GPC/chains in an anaerobic bottle. Unclear significance (contaminant vs. fastidious organism). Continue IV antibiotics for now, follow-up further culture results. IV Cipro, Flagyl and vanco for now. Epigastric pain: initial history of worse with eating and with h/o high doses of NSAID use, thought likely gastritis, on IV ppi; will likely need PPI at discharge. However, today (Sun) describes pain across the entire upper abdomen and down left side, suggestive of colitis, though CT showed no evidence. Continue to monitor. BPH/ severely enlarged prostate: Noted on CT Scan, planned for prostate biopsy, its likely that this is the source of infection and given its huge size the ua is not affected. Trial of Flomax today HTN: Stable, resumed amlodipine, will resume lisinopril today DVT: hep sq Diet regular Full code. Medical - PN: Qual - VTE Deep Vein Thrombosis/Pulmonary Embolism Present on Admission: No
[2016-09-18] MEDS: ONDANSETRON 4 MG/2 ML VIAL IV PRN (20:34)
[2016-09-18] MEDS ORDERED: TAMSULOSIN 0.4 MG CAPSULE PO SCH (21:00)
[2016-09-18] MEDS: amLODIPine 10 MG TABLET PO SCH (21:50)
[2016-09-18] MEDS ORDERED: CLINDAMYCIN 600 MG/4 ML VIAL ONE (22:39)
[2016-09-18] MEDS: CLINDAMYCIN 600 MG in DEXTROSE 5% IN WATER 50 ML IV SCH (22:50)
[2016-09-19] MEDS: VANCOMYCIN 1,500 MG in 0.9 % SODIUM CHLORIDE 500 ML IV SCH ×2 (03:43→17:52)
[2016-09-19] MEDS ORDERED: CLINDAMYCIN 600 MG/4 ML VIAL ONE (05:03)
[2016-09-19] MEDS: CLINDAMYCIN 600 MG in DEXTROSE 5% IN WATER 50 ML IV SCH ×3 (05:55→21:10)
[2016-09-19] MEDS: 0.9 % SODIUM CHLORIDE 10 ML SYRINGE IV SCH ×3 (05:55→21:50)
[2016-09-19 06:41] LABS: Basophils # (Auto) 0 K/mcL (0.0-0.3); Basophils % (Auto) 0.5 % (0.0-2.0); Eosinophils # (Auto) 0.3 K/mcL (0.0-0.7); Eosinophils % (Auto) 3.4 % (0.0-7.0); Lymphocytes # (Auto) 1.2 K/mcL (1.5-4.8); Lymphocytes % (Auto) 13.6 % (15.5-49.0); Mean Cell Volume 83.1 fL (80.0-100.0); Mean Corpuscular HGB Conc 33.8 g/dL (31.0-36.0); Mean Corpuscular Hemoglobin 28.1 pg (26.0-34.0); Monocytes # (Auto) 0.7 K/mcL (0.1-0.9); Monocytes % (Auto) 8.5 % (1.0-12.0); Platelet Count 242 K/mcL (140-440); RBC 3.93 M/mcL (4.50-5.90); Red Cell Distribution Width 13.7 % (11.5-14.5)
[2016-09-19 07:07] LABS: ALT/SGPT 14 U/l (0-40); Albumin 2.8 gm/dL (3.2-5.2); Albumin/Globulin Ratio 0.9 (1.0-2.3); Alkaline Phosphatase 73 U/L (39-117); Bilirubin,Direct < 0.2 mg/dL (0.0-0.3); Blood Urea Nitrogen 7 mg/dl (8-23); Gamma Glutamyl Transpeptidase 44 U/L (8-61); Uric Acid 6.2 mg/dL (2.5-8.0)
[2016-09-19] MEDS: IPRATROPIUM/ALBUTEROL 3 ML AMPUL.NEB NEB SCH ×3 (07:54→18:48)
[2016-09-19] MEDS ORDERED: CIPROFLOXACIN 400 MG/200 ML BAG IV SCH (09:00)
[2016-09-19] MEDS ORDERED: PANTOPRAZOLE 40 MG TABLET PO SCH (10:12)
[2016-09-19] MEDS: NEUTRA PHOS 1 PACKET PO SCH ×2 (10:41→21:06)
[2016-09-19] MEDS: HEPARIN 5,000 UNIT/ML VIAL SQ SCH ×2 (10:41→21:07)
--- NOTE | 2016-09-19 11:27 | Internal Med Progress Note ---
Medical - PN: Subj Patient information: Note initiated : 09/19/16 at 11:24 am Service Date, if different from initiated Date: [] Patient: Golden Armendariz 66 y/o M admitted on 09/16/16 for Weakness. Interval history: Mr. Armendariz is a 66 year old Male with h/o HTN presents to the ER today with symptoms of not feeling well since last Monday. The patient has had poor energy feeling tired, The patient reports abdominal pain in the epigastric region, which is burning and sharp. worse with food and or water consumption, better with not eating. He notes he has had nausea and vomiting associated with the pain. he admits to having fevers and chills over the last few days. The patient initially thought he would get over it and tried to rough it out, when today the symptoms kept getting worse he presented to the ER for further evaluation. The patient also has significantly In the ER he was tachycardic, had low grade fever, given his Abdominal pain, he underwent a CT Abdomen and pelvis which was neg for acute pathology, possible diverticulitis? His Chest x ray was neg, and ua was neg. the patient has a clear mental status, and supple neck, meningitis is unlikely. The patient had elevated pro calcitonin has been tachycardic in the ER,slightly tachypneic, and therefore was admitted to the hospital with diagnosis of possible sepsis, unknown etiology. The patient has an enlarged prostate which is causing his urinary symptoms. He does have increased frequency of urination as well as some discomfort when he passes urine. He denies any pelvic pain or any burning or foul-smelling urine. The patient has some lower back pain. The patient admits that he was on a fishing trip 2 days ago before the symptoms started. he may have been exposed to mosquitoes during that time. The patient denies any tick bites, joint pain, skin rash,or any other acute symptoms. 09/17: Pt seen examined, no acute overnight events, did not sleep well, but this is a chr issue for him because he has to go to the bathroom every hour or every other hour, the patient has had this issue for a long time and notes that only cialis helps him a bit, but that is not given to him by his insurance company. Wanting to go home today, but educated that given his high grade fevers and that he is still having a low grade temp, its not safe for discharge so soon. Would monitor him at least another day or two and wait for microbiology to be neg before we can discharge him. Pt verbalized understanding. Otherwise he still reports some pain in the epigastric region. Bebeto ,lipase is neg, but he has been on high doses of pain meds for his arthritis. educated to not take NSAIDs, on PPI for now. 09/18: Feels a bit better today, still with abdominal pain, across the upper abdomen and on the left side. Appetite remains decreased, has funny taste in his mouth, possibly a side effect of metronidazole. No nausea or vomiting. Again recounts difficulty with urination. States has tried Flomax in the past but that it did not work. Willing to give that another try. Had recurrent fever to 102 this afternoon. No cough, no sputum, no dyspnea, no rashes. 09/19: Continues to slowly feel better. Appetite slowly improving, is able to eat a bagel today. Still with some abdominal pain (described as a "knot" in the abdomen). Less than when he arrived. Describes injury to his hand that occurred approximately a week ago Monday, he received a stab wound to the fifth digit from the tail fin of a lozoya while he was fishing. Subsequent had significant pain erythema and edema that area. Was able to remove a foreign body from the wound, cleaned it with anti-septic and bandaged it with resolution. Complaining of some point tenderness in the upper left chest wall without any swelling or redness. Also had some right lower back pain, which he attributed to being in bed, that seems to have improved. Blood cultures from admission now with both anaerobic bottles positive for gram-positive cocci in chains. - Constitutional Vitals: Vital Signs Temp Pulse Resp BP Pulse Ox 99.6 F H 81 20 123/85 88 L 09/19/16 04:00 09/18/16 23:49 09/19/16 04:00 09/19/16 04:00 09/19/16 07:50 Period Temp Pulse Resp BP Sys/Cintron Pulse Ox Last 24 Hr 97.0 F-102.2 F 80-83 20-24 123-158/68-100 88-97 Intake and Output 09/18/16 09/19/16 09/19/16 21:59 05:59 13:59 Intake Total 200 / 200 Output Total 1850 / 1850 950 / 950 Balance 159.0909 / 159.0909 -750 / -750 Weight 253 lb Intake & Output: Intake & Output 09/18/16 09/19/16 09/19/16 21:59 05:59 13:59 Intake Total 09 200 / 200 Output Total 1850 / 1850 950 / 950 Balance 159.0909 / 159.0909 -750 / -750 Weight 253 lb Intake: IV 1109.0909 / 1109.0909 Vancomycin 1,500 mg In 500 / 500 Sodium Chloride 0.9% 500 ml @ 333.3 mls/hr IV Q12H [facility] Rx#:[id number] Oral 660 / 660 200 / 200 GI Tube Flush 240 / 240 Output: Urine Catheter Amount 200 / 200 Void Amount 1650 / 1650 950 / 950 Other: Meal Dinner Percent of Meal Consumed 75% Feeding Ability Assist with Tray Set Up # Bowel Movements 1 1 - Additional findings Additional findings: General: In bed in no acute distress, in pretty good spirits Chest: Clear to auscultation, respirations unlabored and cardiovascular: Regular rate and rhythm. No murmur can be appreciated while either upright or supine. No peripheral edema. Abdomen: Soft, mild upper abdominal tenderness without guarding or rebound. Bowel sounds are present. Skin: No lesions on the hands or fingernails. Right great toenail with apparent hemorrhagic lesion, patient notes that this is new. No soft tissue lesions of the feet. Musculoskeletal: No vertebral tenderness to percussion. No paraspinous tenderness/erythema/edema. Left upper chest wall with tenderness over pectoralis muscle without swelling or erythema. Neurologic: Alert, oriented 3, nonfocal Medical - PN: Obj Da - Labs CBC & Chem 7: 09/19/16 04:15 09/19/16 04:15 Labs: Abnormal Lab Results 09/19/16 09/19/16 09/18/16 04:15 04:15 04:10 WBC RBC 3.93 L Hgb 11.0 L Hct 32.6 L Gran % Lymph % (Auto) 13.6 L Gran # Lymph # (Auto) 1.2 L Hardy # (Auto) Carbon Dioxide 21 L 20 L Anion Gap BUN 7 L Creatinine Glucose 125 H 128 H Calcium 8.5 L 8.2 L Phosphorus 2.4 L 1.8 L Total Bilirubin Total Protein 5.8 L 5.3 L Albumin 2.8 L 2.7 L Albumin/Globulin Ratio 0.9 L Vancomycin Trough 09/18/16 09/18/16 09/17/16 04:10 04:10 03:55 WBC 13.6 H RBC 3.89 L Hgb 10.6 L 12.5 L Hct 32.4 L 37.6 L Gran % 81.2 H 81.9 H Lymph % (Auto) 9.9 L 9.8 L Gran # 8.2 H 11.1 H Lymph # (Auto) 1.0 L 1.3 L Hardy # (Auto) 1.0 H Carbon Dioxide Anion Gap BUN Creatinine Glucose Calcium Phosphorus Total Bilirubin Total Protein Albumin Albumin/Globulin Ratio Vancomycin Trough 16.3 H 09/17/16 03:55 WBC RBC Hgb Hct Gran % Lymph % (Auto) Gran # Lymph # (Auto) Hardy # (Auto) Carbon Dioxide 17 L Anion Gap 17.0 H BUN Creatinine 1.3 H Glucose 117 H Calcium Phosphorus 1.8 L Total Bilirubin 1.7 H Total Protein Albumin Albumin/Globulin Ratio Vancomycin Trough Microbiology 09/16/16 10:53 Blood Culture - Preliminary Blood Gram positive cocci 09/17/16 18:24 Blood Culture - Preliminary Blood 09/17/16 18:12 Blood Culture - Preliminary Blood 09/16/16 14:27 Urine Culture - Final Urine - Clean Void Mid-Stream 09/16/16 10:43 Blood Culture - Preliminary Blood Gram positive cocci Meds: Medications Acetaminophen (Tylenol) 650 mg PO Q6HP PRN PRN Reason: PAIN/FEVER > 101 Last Admin: 09/18/16 16:08 Dose: 650 mg Albuterol/Ipratropium (Duoneb) 3 ml NEB Q6HRT [facility] Last Admin: 09/19/16 07:54 Dose: Not Given Amlodipine Besylate (Norvasc) 10 mg PO HS [facility] Last Admin: 09/18/16 21:50 Dose: 10 mg Docusate Sodium (Colace) 100 mg PO BID [facility] Last Admin: 09/18/16 21:48 Dose: Not Given Heparin Sodium (Porcine) (Heparin) 5,000 unit SQ Q12 [facility] Last Admin: 09/19/16 10:41 Dose: 5,000 unit Vancomycin HCl 1,500 mg/ (Sodium Chloride) 500 mls @ 333.3 mls/hr IV Q12H [facility] Last Admin: 09/19/16 03:43 Dose: 335 mls/hr Clindamycin Phosphate 600 mg/ (Dextrose) 54 mls @ 100 mls/hr IV Q8H [facility] Last Admin: 09/19/16 05:55 Dose: Not Given Ciprofloxacin (Cipro) 400 mg in 200 mls @ 200 mls/hr IV Q12H [facility] Last Admin: 09/19/16 10:41 Dose: 200 mls/hr Ceftriaxone Sodium 1 gm/ (Dextrose) 50 mls @ 100 mls/hr IV Q24H [facility] Naloxone HCl (Narcan) 0.1 mg IV Q2MIN PRN PRN Reason: Opiate Reversal Ondansetron HCl (Zofran) 4 mg IV Q4HP PRN PRN Reason: Nausea And Vomiting Last Admin: 09/18/16 20:34 Dose: 4 mg Oxycodone/Acetaminophen (Percocet 5-325 Mg) 1 tab PO Q4HP PRN PRN Reason: Pain Pantoprazole Sodium (Protonix) 40 mg PO BIDAC [facility] Last Admin: 09/19/16 10:55 Dose: 40 mg Potassium/Phosphorus/Sodium (Neutra Phos) 1 packet PO BID [facility] Stop: 09/21/16 21:01 Last Admin: 09/19/16 10:41 Dose: 1 packet Sodium Chloride (Saline Flush) 10 ml IV Q8 [facility] Last Admin: 09/19/16 05:55 Dose: 10 ml Tamsulosin HCl (Flomax) 0.8 mg PO HS [facility] Last Admin: 09/18/16 21:50 Dose: 0.8 mg Vancomycin HCl (Vancomycin Per Pharmacy) 1 order IV [facility] Medical - PN: A/P - Time Spent With Patient Total time spent is greater than 50% in coordination of care (as documented) at patient's floor/unit and/or counseling patient: Greater than 35 minutes - Narrative A/P Narrative: Sepsis: Now 2/4 bottles of original blood cultures positive for gram-positive cocci in chains in anaerobic bottles, suspicious for anaerobic/fastidious bacterial bloodstream infection. Possible sources include continuous after injury from tail fin of a lozoya. Suspicious lesion on nail of the great toe, concern for possible endocarditis. Less of a concern for prostatic source, though given abdominal symptoms intra-abdominal source remains a possibility though initial CT was without significant findings except for diverticulosis without evidence of diverticulitis. When second bottle became positive, clindamycin added and metronidazole stopped. Responding to antibiotics, WBC now normalized. Still with low grade fever this morning. Plan: Change ciprofloxacin for ceftriaxone for better gram-positive, breech in addition to clindamycin. No evidence of MRSA, we will stop vancomycin. Check echocardiogram to evaluate for vegetations. Follow up final identification sensitivities of blood cultures. Acute renal failure. Creatinine 1.6 at presentation, now 1.0-1.1 range. Likely secondary to sepsis. Resolved. Continue to follow. Epigastric pain: Initially with a history of worse with eating and with history of high-dose NSAIDs thought possible gastritis. Remains on a PPI. Some of his GI upset may have been metronidazole as well. Abdomen not as tender today as it was yesterday. Plan: Continue to follow, consider repeat imaging. BPH with severely enlarged prostate and lower urinary tract symptoms: BPH noted on CT scan. Has history of prostate biopsies. Given results of blood cultures , probably less likely as a source of his sepsis. Plan: Continue with trial of Flomax. Hypertension: Stable, back on amlodipine. Lisinopril resumed this morning. DVT prophylaxis: Subcutaneous heparin Diet: Regular CODE STATUS: Full code Medical - PN: Qual - VTE Deep Vein Thrombosis/Pulmonary Embolism Present on Admission: No
[2016-09-19] MEDS ORDERED: cefTRIAXone 1 GM in DEXTROSE 5% IN WATER 50 ML IV SCH (12:00)
[2016-09-19] MEDS ORDERED: ONDANSETRON 4 MG/2 ML VIAL IV PRN (12:40)
[2016-09-19] MEDS ORDERED: VANCOMYCIN PER PHARMACY IV SCH (12:40)
[2016-09-19] MEDS ORDERED: oxyCODONE/APAP 5/325MG TABLET PO PRN (12:40)
[2016-09-19] MEDS ORDERED: NALOXONE HCL 0.4 MG/ML VIAL IV PRN (12:40)
[2016-09-19] MEDS ORDERED: ACETAMINOPHEN 325 MG TABLET PO PRN (12:40)
[2016-09-19] MEDS: DOCUSATE SODIUM 100 MG CAPSULE PO SCH ×2 (12:50→21:07)
[2016-09-19] MEDS: PANTOPRAZOLE 40 MG VIAL IV SCH (15:19)
[2016-09-19] MEDS: PANTOPRAZOLE 40 MG TABLET PO SCH (17:52)
[2016-09-19] MEDS: TAMSULOSIN 0.4 MG CAPSULE PO SCH (21:04)
[2016-09-19] MEDS: amLODIPine 10 MG TABLET PO SCH (21:04)
[2016-09-20] MEDS: IPRATROPIUM/ALBUTEROL 3 ML AMPUL.NEB NEB SCH ×2 (02:14→07:40)
[2016-09-20] MEDS: VANCOMYCIN 1,500 MG in 0.9 % SODIUM CHLORIDE 500 ML IV SCH (04:55)
[2016-09-20] MEDS: 0.9 % SODIUM CHLORIDE 10 ML SYRINGE IV SCH ×3 (04:55→21:05)
[2016-09-20 06:10] LABS: Basophils # (Auto) 0 K/mcL (0.0-0.3); Basophils % (Auto) 0.6 % (0.0-2.0); Eosinophils # (Auto) 0.6 K/mcL (0.0-0.7); Eosinophils % (Auto) 7.2 % (0.0-7.0); Granulocytes % (Auto) 68.9 % (38.0-78.0); Lymphocytes # (Auto) 1.3 K/mcL (1.5-4.8); Lymphocytes % (Auto) 14.5 % (15.5-49.0); Mean Cell Volume 83.7 fL (80.0-100.0); Mean Corpuscular HGB Conc 33.3 g/dL (31.0-36.0); Mean Corpuscular Hemoglobin 27.9 pg (26.0-34.0); Monocytes # (Auto) 0.8 K/mcL (0.1-0.9); Monocytes % (Auto) 8.8 % (1.0-12.0); Platelet Count 291 K/mcL (140-440); RBC 4.13 M/mcL (4.50-5.90)
[2016-09-20 06:28] LABS: ALT/SGPT 19 U/l (0-40); Albumin 3.1 gm/dL (3.2-5.2); Albumin/Globulin Ratio 1.1 (1.0-2.3); Alkaline Phosphatase 72 U/L (39-117); Bilirubin,Direct < 0.2 mg/dL (0.0-0.3); Blood Urea Nitrogen 10 mg/dl (8-23); Gamma Glutamyl Transpeptidase 52 U/L (8-61); Magnesium 1.9 mg/dL (1.6-2.5)
[2016-09-20] MEDS: CLINDAMYCIN 600 MG in DEXTROSE 5% IN WATER 50 ML IV SCH ×2 (06:45→14:12)
[2016-09-20] MEDS: PANTOPRAZOLE 40 MG TABLET PO SCH ×2 (07:24→17:06)
[2016-09-20] MEDS ORDERED: PANTOPRAZOLE 40 MG TABLET PO SCH (07:30)
[2016-09-20] MEDS: NEUTRA PHOS 1 PACKET PO SCH ×2 (08:42→21:04)
[2016-09-20] MEDS: HEPARIN 5,000 UNIT/ML VIAL SQ SCH ×2 (08:43→21:04)
[2016-09-20] MEDS: DOCUSATE SODIUM 100 MG CAPSULE PO SCH ×2 (08:43→21:05)
[2016-09-20] MEDS ORDERED: cefTRIAXone 1 GM in DEXTROSE 5% IN WATER 50 ML IV SCH (10:00)
[2016-09-20] MEDS: TAMSULOSIN 0.4 MG CAPSULE PO SCH (14:13)
[2016-09-20] MEDS ORDERED: TAMSULOSIN 0.4 MG CAPSULE PO SCH (14:30)
--- NOTE | 2016-09-20 18:23 | Internal Med Progress Note ---
Medical - PN: Subj Patient information: Note initiated : 09/20/16 at 6:19 pm Service Date, if different from initiated Date: [] Patient: Golden Armendariz 66 y/o M admitted on 09/16/16 for Weakness/Sepsis. Chief Complaint: [Follow-up sepsis] Interval history: Mr. Armendariz is a 66 year old Male with h/o HTN presents to the ER today with symptoms of not feeling well since last Monday. The patient has had poor energy feeling tired, The patient reports abdominal pain in the epigastric region, which is burning and sharp. worse with food and or water consumption, better with not eating. He notes he has had nausea and vomiting associated with the pain. he admits to having fevers and chills over the last few days. The patient initially thought he would get over it and tried to rough it out, when today the symptoms kept getting worse he presented to the ER for further evaluation. The patient also has significantly In the ER he was tachycardic, had low grade fever, given his Abdominal pain, he underwent a CT Abdomen and pelvis which was neg for acute pathology, possible diverticulitis? His Chest x ray was neg, and ua was neg. the patient has a clear mental status, and supple neck, meningitis is unlikely. The patient had elevated pro calcitonin has been tachycardic in the ER,slightly tachypneic, and therefore was admitted to the hospital with diagnosis of possible sepsis, unknown etiology. The patient has an enlarged prostate which is causing his urinary symptoms. He does have increased frequency of urination as well as some discomfort when he passes urine. He denies any pelvic pain or any burning or foul-smelling urine. The patient has some lower back pain. The patient admits that he was on a fishing trip 2 days ago before the symptoms started. he may have been exposed to mosquitoes during that time. The patient denies any tick bites, joint pain, skin rash,or any other acute symptoms. 09/17: Pt seen examined, no acute overnight events, did not sleep well, but this is a chr issue for him because he has to go to the bathroom every hour or every other hour, the patient has had this issue for a long time and notes that only cialis helps him a bit, but that is not given to him by his insurance company. Wanting to go home today, but educated that given his high grade fevers and that he is still having a low grade temp, its not safe for discharge so soon. Would monitor him at least another day or two and wait for microbiology to be neg before we can discharge him. Pt verbalized understanding. Otherwise he still reports some pain in the epigastric region. Amyalse ,lipase is neg, but he has been on high doses of pain meds for his arthritis. educated to not take NSAIDs, on PPI for now. 09/18: Feels a bit better today, still with abdominal pain, across the upper abdomen and on the left side. Appetite remains decreased, has funny taste in his mouth, possibly a side effect of metronidazole. No nausea or vomiting. Again recounts difficulty with urination. States has tried Flomax in the past but that it did not work. Willing to give that another try. Had recurrent fever to 102 this afternoon. No cough, no sputum, no dyspnea, no rashes. 09/19: Continues to slowly feel better. Appetite slowly improving, is able to eat a bagel today. Still with some abdominal pain (described as a "knot" in the abdomen). Less than when he arrived. Describes injury to his hand that occurred approximately a week ago Monday, he received a stab wound to the fifth digit from the tail fin of a lozoya while he was fishing. Subsequent had significant pain erythema and edema that area. Was able to remove a foreign body from the wound, cleaned it with anti-septic and bandaged it with resolution. Complaining of some point tenderness in the upper left chest wall without any swelling or redness. Also had some right lower back pain, which he attributed to being in bed, that seems to have improved. Blood cultures from admission now with both anaerobic bottles positive for gram-positive cocci in chains. 09/20: Appetite continues to pickup. Still mild epigastric tenderness, continues to slowly improve. Was up frequently at night with urination, which he attributed to the Flomax. Decided to try taking it earlier in the day today. Blood cultures final for Peptostreptococcus. No dental pain or issues. On further questioning, he did has had a broken molar at the gumline for several years. No headaches, facial fullness or pain, ear pain. Reviewed CT of the abdomen and pelvis with radiologist, no evidence of embolic/septic phenomenon, no evidence of abscess. Lung bases are clear without evidence of aspiration. - Constitutional Vitals: Vital Signs Temp Pulse Resp BP Pulse Ox 96.5 F L 87 16 135/80 97 09/20/16 16:00 09/20/16 07:38 09/20/16 16:00 09/20/16 16:00 09/20/16 16:00 Period Temp Pulse Resp BP Sys/Cintron Pulse Ox Last 24 Hr 96.5 F-98.3 F 81-87 16-18 126-149/74-84 92-97 Intake and Output 09/20/16 09/20/16 09/20/16 05:59 13:59 21:59 Intake Total 0 / 0 54 / 54 1880 / 1880 Output Total 725 / 725 800 / 800 Balance -725 / -725 54 / 54 1080 / 1080 Intake & Output: Intake & Output 09/20/16 09/20/16 09/20/16 05:59 13:59 21:59 Intake Total 0 / 0 54 / 54 1880 / 1880 Output Total 725 / 725 800 / 800 Balance -725 / -725 54 / 54 1080 / 1080 Intake: IV / 54 Cleocin 600 mg In / Dextrose 5% in Water 50 ml @ 100 mls/hr IV Q8H [facility] Rx#:[id number] Oral 0 / 0 1880 / 1880 Output: Void Amount 725 / 725 800 / 800 Other: Meal Lunch Percent of Meal Consumed 100% # Voids 3 - Additional findings Additional findings: General: Laying in bed, pretty good spirits HEENT: No sinus pressure/pain with palpation. Oropharynx with right lower molar missing, roots are visible at the gumline, no active inflammation or tenderness with palpation. No submandibular induration or mass, no lymphadenopathy. Chest: Clear Cardiovascular: Regular, no murmur Abdomen: Very minimal epigastric tenderness, no guarding or rebound, active bowel sounds Neuro: Alert, oriented, nonfocal Medical - PN: Obj Da - Labs CBC & Chem 7: 09/20/16 03:53 09/20/16 03:53 Labs: Abnormal Lab Results 09/20/16 09/20/16 09/19/16 03:53 03:53 04:15 RBC 4.13 L Hgb 11.5 L Hct 34.6 L Gran % Lymph % (Auto) 14.5 L Eos % (Auto) 7.2 H Gran # Lymph # (Auto) 1.3 L Carbon Dioxide 21 L BUN 7 L Glucose 116 H 125 H Calcium 8.5 L Phosphorus 2.4 L Total Protein 5.8 L Albumin 3.1 L 2.8 L Albumin/Globulin Ratio 0.9 L Vancomycin Trough 09/19/16 09/18/16 09/18/16 04:15 04:10 04:10 RBC 3.93 L 3.89 L Hgb 11.0 L 10.6 L Hct 32.6 L 32.4 L Gran % 81.2 H Lymph % (Auto) 13.6 L 9.9 L Eos % (Auto) Gran # 8.2 H Lymph # (Auto) 1.2 L 1.0 L Carbon Dioxide 20 L BUN Glucose 128 H Calcium 8.2 L Phosphorus 1.8 L Total Protein 5.3 L Albumin 2.7 L Albumin/Globulin Ratio Vancomycin Trough 09/18/16 04:10 RBC Hgb Hct Gran % Lymph % (Auto) Eos % (Auto) Gran # Lymph # (Auto) Carbon Dioxide BUN Glucose Calcium Phosphorus Total Protein Albumin Albumin/Globulin Ratio Vancomycin Trough 16.3 H Meds: Medications Acetaminophen (Tylenol) 650 mg PO Q6HP PRN PRN Reason: PAIN/FEVER > 101 Amlodipine Besylate (Norvasc) 10 mg PO HS [facility] Last Admin: 09/19/16 21:04 Dose: 10 mg Clindamycin HCl (Cleocin) 450 mg PO Q8 [facility] Docusate Sodium (Colace) 100 mg PO BID [facility] Last Admin: 09/20/16 08:43 Dose: Not Given Heparin Sodium (Porcine) (Heparin) 5,000 unit SQ Q12 [facility] Last Admin: 09/20/16 08:43 Dose: 5,000 unit Naloxone HCl (Narcan) 0.1 mg IV Q2MIN PRN PRN Reason: Opiate Reversal Ondansetron HCl (Zofran) 4 mg IV Q4HP PRN PRN Reason: Nausea And Vomiting Oxycodone/Acetaminophen (Percocet 5-325 Mg) 1 tab PO Q4HP PRN PRN Reason: Pain Pantoprazole Sodium (Protonix) 40 mg PO BIDAC [facility] Last Admin: 09/20/16 17:06 Dose: 40 mg Potassium/Phosphorus/Sodium (Neutra Phos) 1 packet PO BID [facility] Stop: 09/21/16 21:01 Last Admin: 09/20/16 08:42 Dose: 1 packet Sodium Chloride (Saline Flush) 10 ml IV Q8 [facility] Last Admin: 09/20/16 14:13 Dose: 10 ml Tamsulosin HCl (Flomax) 0.8 mg PO DAILY@1400 [facility] Last Admin: 09/20/16 15:58 Dose: Not Given Medical - PN: A/P - Time Spent With Patient Total time spent is greater than 50% in coordination of care (as documented) at patient's floor/unit and/or counseling patient: Greater than 35 minutes - Narrative A/P Narrative: Sepsis: From Peptostreptococcal bloodstream infection. Source of infection possibly dental, with broken molar. There are rare case reports of Peptostreptococcus associated with injuries from fish, though dental infection is likely the most common source. Surveillance cultures have remained negative , which were drawn the day after hospitalization with recurrent fever. Fever has tapered off and resolved. White count is normalized. Overall patient is improving on current antibiotic therapy. I discussed the case with infectious disease specialist at the [facility]. They have suggested oral regimens to complete a two-week course of antibiotics. As he has improved, has not have recurrent bacteremia, has no other evidence of embolic phenomenon, as clean valves on transthoracic echo, suspicion for endocarditis is low at this time. If he were to have recurrent symptoms, further evaluation of valve should be undertaken. Plan: Narrow antibiotics to clindamycin 450 mg by mouth every 8 hours and monitor in the hospital to assure he tolerates that and does not have recurrent fevers. Acute renal failure. Creatinine 1.6 at presentation, now 1.0-1.1 range. Likely secondary to sepsis. Resolved. Continue to follow. Epigastric pain: Initially with a history of worse with eating and with history of high-dose NSAIDs thought possible gastritis. Remains on a PPI. Some of his GI upset may have been metronidazole as well. Abdomen continues to improve on exam. Reviewed CT of the abdomen and pelvis with radiologist, no significant findings. Plan: Continue to follow. BPH with severely enlarged prostate and lower urinary tract symptoms: BPH noted on CT scan. Has history of prostate biopsies. Given results of blood cultures , probably less likely as a source of his sepsis. Plan: Continue with trial of Flomax. Hypertension: Stable, back on amlodipine. Lisinopril resumed this morning. DVT prophylaxis: Subcutaneous heparin Diet: Regular CODE STATUS: Full code Medical - PN: Qual - VTE Deep Vein Thrombosis/Pulmonary Embolism Present on Admission: No
[2016-09-20] MEDS: amLODIPine 10 MG TABLET PO SCH (21:04)
[2016-09-20] MEDS: CLINDAMYCIN 150 MG CAPSULE PO SCH (21:04)
[2016-09-21] MEDS: CLINDAMYCIN 150 MG CAPSULE PO SCH (05:37)
[2016-09-21] MEDS: 0.9 % SODIUM CHLORIDE 10 ML SYRINGE IV SCH (05:37)
[2016-09-21 07:17] LABS: Basophils # (Auto) 0 K/mcL (0.0-0.3); Basophils % (Auto) 0.5 % (0.0-2.0); Eosinophils # (Auto) 0.8 K/mcL (0.0-0.7); Eosinophils % (Auto) 8.7 % (0.0-7.0); Lymphocytes # (Auto) 1.7 K/mcL (1.5-4.8); Lymphocytes % (Auto) 17.3 % (15.5-49.0); Mean Cell Volume 82.6 fL (80.0-100.0); Mean Corpuscular HGB Conc 33.7 g/dL (31.0-36.0); Mean Corpuscular Hemoglobin 27.8 pg (26.0-34.0); Monocytes # (Auto) 0.8 K/mcL (0.1-0.9); Monocytes % (Auto) 8.5 % (1.0-12.0); Platelet Count 340 K/mcL (140-440); RBC 4.25 M/mcL (4.50-5.90); Red Cell Distribution Width 14.2 % (11.5-14.5)
[2016-09-21 07:50] LABS: ALT/SGPT 32 U/l (0-40); Albumin 3.2 gm/dL (3.2-5.2); Albumin/Globulin Ratio 1.1 (1.0-2.3); Alkaline Phosphatase 74 U/L (39-117); Bilirubin,Direct < 0.2 mg/dL (0.0-0.3); Blood Urea Nitrogen 12 mg/dl (8-23); Gamma Glutamyl Transpeptidase 65 U/L (8-61)
[2016-09-21] MEDS: PANTOPRAZOLE 40 MG TABLET PO SCH (08:06)
[2016-09-21] MEDS: DOCUSATE SODIUM 100 MG CAPSULE PO SCH (09:34)
[2016-09-21] MEDS: NEUTRA PHOS 1 PACKET PO SCH (09:35)
[2016-09-21] MEDS: HEPARIN 5,000 UNIT/ML VIAL SQ SCH (09:37)
[2016-09-21] MEDS ORDERED: LACTOBACILLUS 1 CAPSULE PO SCH (10:41)
--- NOTE | 2016-09-21 10:46 | Discharge Summary ---
Medical - DS: Prov Patient information: Note initiated : 09/21/16 at 10:43 am Service Date, if different from initiated Date: [] Patient: Golden Armendariz 66 y/o M admitted on 09/16/16 for Weakness/Sepsis. Date of admission: 09/16/16 15:34 Discharge date: 09/21/16 Primary care physician: Cal Leiva Attending physician on admission: Lazaro Murcia Attending physician on discharge: Isabella Maurer Medical - DS: Meds - Discharge Medications Prescriptions: Clindamycin [Cleocin] 450 mg PO Q8 #90 capsule Saccharomyces Boulardii [Florastor] 250 mg PO BID #60 capsule Tamsulosin [Flomax] 0.8 mg PO DAILY@1400 #60 capsule Active and Home Medications: Home Medications amlodipine 10 mg tablet 10 mg PO QDAY 90 Days 08/24/16 [Rx Confirmed 09/16/16 Last Taken 09/15/16 21:00] lisinopril 10 mg tablet 10 mg PO QDAY 90 Days 08/24/16 [Rx Confirmed 09/16/16 Last Taken 09/16/16 07:00] Medical - DS: Hosp Hospital course: Mr. Armendariz is a 66 year old M with h/o HTN presented to the ER with symptoms of not feeling well for 6 days. The patient had had poor energy, feeling tired, having fevers and chills over the last few days and reported abdominal pain in the epigastric region, which is burning and sharp. worse with food and or water consumption, better with not eating. He notes he has had nausea and vomiting associated with the pain. The patient initially thought he would get over it and tried to rough it out, when today the symptoms kept getting worse he presented to the ER for further evaluation. In the ER he was tachycardic, tachypneic, had fever to 103 (rectally), leukocytosis to 17.4K with a bandemia and elevated procalcitonin at 4.10. CT abdomen and pelvis was only notable for a very enlarged prostate without evidence of inflammation or abscess. There was diverticulosis without evidence of diverticulitis. Chest x-ray was clear. Urinalysis was unremarkable. Patient did not have headache and his neck was supple, meningitis was felt to be unlikely. He was admitted to the hospital with diagnosis of sepsis, unknown etiology. He was covered broadly with vancomycin, as well as ciprofloxacin and metronidazole given his abdominal complaints. He was treated with proton pump inhibitor, he had been using nonsteroidals frequently, his abdominal complaints subsided over the next few days. This may represent a gastritis. In addition to an possible intra-abdominal source (though no pathology was ever identified) prostatitis was also considered as an etiology. As noted urinalysis was negative. There is no evidence of inflammatory change or abscess on CT. Rectal exam did not reveal tenderness. The source of sepsis remained unknown at that time. The patient's anaerobic blood cultures from admission subsequently became positive for gram-positive cocci in chains on the second and third hospital days. Metronidazole was stopped, and clindamycin was started for better gram positive anaerobic coverage. Follow-up blood cultures remained negative. Those initial cultures were identified as Peptostreptococcus micros. No aerobic pathogens were identified. I reviewed abdominal imaging with radiology , there is no evidence of an abscess, no evidence of embolic phenomenon either. Lung bases were also clear, without evidence of an aspiration. Echocardiogram showed normal valves and preserved ejection fraction ( transthoracic). By this time the patient had improved on antibiotic therapy, with resolution of fevers as well as normalization of his white count. Concern for endocarditis was low at this time given his rapid improvement and absence of persistent bacteremia or embolic phenomenon. Ultimately, the source of the Peptostreptococcus sepsis was likely dental. The patient has a molar that is broken off at the gumline. There is no surrounding inflammation or tenderness, but this would probably represent the source. Less likely would've been a source from a hand wound he received from the tail fin of a lozoya while fishing, occurring about one week prior to the onset of his symptoms (rarely reported anaerobic infection from freshwater fish wounds). I did discuss this case with the infectious disease service at the [facility] via telephone. It is felt the oral source was most likely. They have recommended oral antibiotic regimens to complete a two-week course, including clindamycin 450 mg every 8 hours. Given its good bioavailability, IV antibiotics were stopped, he is estranged over to oral clindamycin. He tolerated 2 doses without well. His white count remained normal. He remained afebrile. He will be discharged with 10 further days to complete a two-week course of antibiotics for Peptostreptococcus septicemia, likely from oral source. The patient also had ongoing lower urinary tract symptoms from his BPH. He does follow with urology. He was not currently on any treatment. He was started on Flomax, 0.8 mg daily, a prescription is provided at discharge. Discharge diagnosis: Sepsis from peptostreptococcus blood stream infection Secondary discharge diagnosis: Acute renal failure from sepsis, resolved (Creatinine 1.6 at admission) BPH with lower urinary tract symptoms, Flomax started Hypertension - Time Spent with Patient Total time spent providing and/or coordinating discharge services: Greater than 30 minutes Medical - DS: Exam - Constitutional Vitals: Vital Signs Temp Pulse Resp BP BP Pulse Ox 09/21/16 07:52 97.7 F 18 153/94 93 09/21/16 07:09 92 09/21/16 03:52 97.6 F 77 18 138/83 93 09/20/16 23:36 98.2 F 78 20 150/90 92 09/20/16 19:35 97.7 F 83 20 152/91 93 09/20/16 16:00 96.5 F L 16 135/80 97 09/20/16 12:00 96.7 F L 132/80 97 Intake and Output 09/20/16 09/21/16 09/21/16 21:59 05:59 13:59 Intake Total 2520 / 2520 500 / 500 Output Total 800 / 800 Balance 1720 / 1720 500 / 500 Intake: Oral 2520 / 2520 500 / 500 Output: Void Amount 800 / 800 Other: Meal Dinner Percent of Meal Consumed 100% Feeding Ability Independent # Voids 1 1 Weight 254 lb 8 oz - Other Additional findings: General: Laying in bed, in no acute distress, feels well HEENT: Right mandibular molar with roots visible at the gumline. No surrounding erythema or edema Chest: Clear to auscultation without rales Cardiovascular: Regular rate and rhythm, no murmur gallop or rub Abdomen: Obese, soft, nontender, no epigastric tenderness, no guarding or rebound. Neuro: Alert, oriented 3, moves all extremities equally, nonfocal Medical - DS: Data Procedures and tests throughout hospitalization: CT of the abdomen and pelvis IMPRESSION: 1. Sigmoid diverticulosis, but no CT evidence for diverticulitis. Mild early diverticulitis may be CT occult 2. Massive prostate enlargement with mild diffuse urinary bladder wall thickening suggesting chronic bladder outlet obstruction. There are two stones within the urinary bladder, 17 mm and 6 mm respectively. Suspect this may be the etiology of patient's pain Gallbladder ultrasound MPRESSION: Hyperechoic liver compatible with fatty change. Gallbladder, bile ducts and pancreas are normal Chest x-ray IMPRESSION: Minor bibasilar atelectasis Echocardiogram The left ventricle is normal in size. There is borderline concentric left ventricular hypertrophy. Calculated ejection fraction equals 60%. There is mild mitral regurgitation. No vegetations identified. Labs on day of discharge: Labs from last 24 hours 09/21/16 09/21/16 05:00 05:00 WBC 9.7 RBC 4.25 L Hgb 11.8 L Hct 35.1 L MCV 82.6 MCH 27.8 MCHC 33.7 RDW 14.2 Plt Count 340 MPV 7.8 Gran % 65.0 Lymph % (Auto) 17.3 [place] % (Auto) 8.5 Eos % (Auto) 8.7 H Baso % (Auto) 0.5 Gran # 6.3 Lymph # (Auto) 1.7 [place] # (Auto) 0.8 Eos # (Auto) 0.8 H Baso # (Auto) 0 Sodium 142 Potassium 3.6 Chloride 104 Carbon Dioxide 26 Anion Gap 12.0 BUN 12 Creatinine 1.3 H GFR Calculation 57 Glucose 109 H Uric Acid 8.0 Calcium 8.8 Phosphorus 3.1 Magnesium 2.0 Total Bilirubin 0.4 Direct Bilirubin < 0.2 GGT 65 H AST 44 H ALT 32 Alkaline Phosphatase 74 Lactate Dehydrogenase 216 Total Protein 6.2 Albumin 3.2 Globulin 3.0 Albumin/Globulin Ratio 1.1 Triglycerides 136 Preliminary micro results at discharge 09/17/16 18:24 Blood Culture - Preliminary Blood 09/17/16 18:12 Blood Culture - Preliminary Blood Medical - DS: A/P - Patient/Caregiver Discharge Instructions Activity: resume usual activities as tolerated Diet: Regular Diet Additional Instructions: Take probiotics as prescribed. Also take one to 2 servings of yogurt with live cultures or kefir daily to help prevent diarrhea associated with antibiotics. If you develop fever, return to be seen. If he develop abdominal pain and diarrhea, also return to the emergency department to be seen. Follow-up with Dr. Leiva in 710 days Prescriptions: Clindamycin [Cleocin] 450 mg PO Q8 #90 capsule Saccharomyces Boulardii [Florastor] 250 mg PO BID #60 capsule Tamsulosin [Flomax] 0.8 mg PO DAILY@1400 #60 capsule - Follow up Plan Follow up with: Cal Leiva MD [Primary Care Provider] - 10/04/16 11:00 am Disposition: Home, Self-Care Prognosis: Good Rehab Potential: Good Overall status at discharge: patient is back to baseline Medical - DS: Qual - VTE Deep Vein Thrombosis/Pulmonary Embolism Present on Admission: No
== END 2016-09-21 12:20 | disposition home or self-care (01) | DRG 872 ==
LOC: ED 08:20 → ICU 15:30 → MEDSUR 09-20 19:19
PROVIDERS: ADMIT Internal Medicine; ATTEND Internal Medicine

== ENCOUNTER 2024-05-04 22:24 | Inpatient (IN) ==
[2024-05-05 01:28] LABS: Basophils # (Auto) 0.01 K/mcL (0.00-0.30); Basophils % (Auto) 0.1 % (0.0-2.0); Eosinophils # (Auto) 0.01 K/mcL (0.00-0.70); Eosinophils % (Auto) 0.1 % (0.0-7.0); Hematocrit 25.1 % (40.1-51.0); Hemoglobin 7.9 g/dL (13.7-17.5); Lymphocytes # (Auto) 1.02 K/mcL (1.50-4.80); Lymphocytes % (Auto) 8.7 % (15.5-49.0); Mean Cell Volume 85.4 fL (80.0-100.0); Mean Corpuscular HGB Conc 31.5 g/dL (31.0-36.0); Mean Platelet Volume 9.9 fL (8.8-12.5); Monocytes # (Auto) 0.88 K/mcL (0.10-0.90); Monocytes % (Auto) 7.5 % (1.0-12.0); Neutrophils % (Auto) 83.2 % (38.0-78.0); Platelet Count 261 K/mcL (140-440); RBC 2.94 M/mcL (4.63-6.08); Red Cell Distribution Width 15.5 % (11.5-14.5); WBC 11.7 K/mcL (4.5-11.0)
[2024-05-05 01:46] LABS: Blood Urea Nitrogen 18 mg/dL (8-23); Carbon Dioxide 20 mmol/L (22-30); Chloride 103 mmol/L (96-108); Glomerular Filtration Rate 54; Glucose 168 mg/dL (70-105); Potassium 4.1 mmol/L (3.3-5.1); Sodium 136 mmol/L (133-145)
[2024-05-05 02:08] LABS: INR 1.2 (0.9-1.1); Prothrombin Time 16.7 sec (11.9-14.5)
[2024-05-05] MEDS: LIDOCAINE 2% URO-JET 10 ML JEL.PF.APP UR ONE ×2 (02:30→02:38)
[2024-05-05] MEDS: ACETAMINOPHEN 1,000 MG/100 ML BAG IV ONE (03:19)
[2024-05-05] MEDS: ACETAMINOPHEN 325 MG TABLET PO ONE (03:44)
[2024-05-05] MEDS: ASPIRIN 81 MG TAB.CHEW CHEWED ONE (08:35)
[2024-05-05] MEDS ORDERED: IPRATROPIUM/ALBUTEROL 3 ML AMPUL.NEB NEB PRN (12:53)
[2024-05-05] MEDS ORDERED: POLYETHYLENE GLYCOL 3350 17 GM PACKET PO PRN (12:53)
[2024-05-05] MEDS ORDERED: ONDANSETRON 4 MG/2 ML VIAL IV PRN (12:53)
[2024-05-05] MEDS ORDERED: POTASSIUM CHLORIDE 20 MEQ TABLET PO PRN ×2 (12:53)
[2024-05-05] MEDS ORDERED: DEXTROSE 31 GM ORAL.SUSP PO PRN (12:53)
[2024-05-05] MEDS ORDERED: METOCLOPRAMIDE 10 MG/2 ML VIAL IV PRN (12:53)
[2024-05-05] MEDS ORDERED: DEXTROSE 50% 50 ML VIAL IV PRN (12:53)
[2024-05-05] MEDS ORDERED: MAGNESIUM SULFATE 2 GM/50 ML BAG IV PRN (12:53)
[2024-05-05] MEDS ORDERED: POTASSIUM CHLORIDE 40 MEQ in DEXTROSE 5% IN WATER 500 ML IV PRN (12:53)
[2024-05-05] MEDS ORDERED: SENNOSIDES 1 TABLET PO PRN (12:53)
[2024-05-05] MEDS: SUCRALFATE 1 GM/10 ML ORAL.SUSP PO ONE (14:31)
[2024-05-05] MEDS: INSULIN LISPRO 1 UNIT/0.01 ML UNIT SQ SCH (16:44)
[2024-05-05] MEDS: 0.9 % SODIUM CHLORIDE 250 ML IV SCH (17:09)
[2024-05-05] MEDS: TAMSULOSIN 0.4 MG CAPSULE PO SCH (21:12)
[2024-05-05] MEDS: CARVEDILOL 3.125 MG TABLET PO SCH (21:12)
[2024-05-05] MEDS: DOCUSATE SODIUM 100 MG CAPSULE PO SCH (21:12)
[2024-05-05] MEDS: ACETAMINOPHEN 325 MG TABLET PO PRN (23:18)
[2024-05-06 06:30] LABS: ALT/SGPT 7 U/L (<40); AST/SGOT 10 U/L (<40); Albumin 3.3 gm/dL (3.2-5.2); Albumin/Globulin Ratio 1.7 (1.0-2.3); Alkaline Phosphatase 68 U/L (39-117); Bilirubin,Direct 0.8 mg/dL (<0.3); Bilirubin,Total 1.4 mg/dL (0.1-1.0); Blood Urea Nitrogen 15 mg/dL (8-23); Calcium 9.7 mg/dL (8.6-10.4); Carbon Dioxide 21 mmol/L (22-30); Chloride 106 mmol/L (96-108); Glomerular Filtration Rate 74; Glucose 115 mg/dL (70-105); Lactate Dehydrogenase 96 U/L (135-225); Phosphorous 2.4 mg/dL (2.5-4.5); Sodium 138 mmol/L (133-145); Triglycerides 78 mg/dL (<150); Uric Acid 5.9 mg/dL (2.5-8.0)
[2024-05-06 07:45] LABS: Basophils # (Auto) 0.02 K/mcL (0.00-0.30); Basophils % (Auto) 0.3 % (0.0-2.0); Eosinophils % (Auto) 1.3 % (0.0-7.0); Hematocrit 26.7 % (40.1-51.0); Hemoglobin 8.4 g/dL (13.7-17.5); Lymphocytes # (Auto) 0.92 K/mcL (1.50-4.80); Lymphocytes % (Auto) 12.1 % (15.5-49.0); Mean Cell Volume 86.4 fL (80.0-100.0); Mean Corpuscular HGB Conc 31.5 g/dL (31.0-36.0); Mean Platelet Volume 10.1 fL (8.8-12.5); Monocytes # (Auto) 0.55 K/mcL (0.10-0.90); Monocytes % (Auto) 7.2 % (1.0-12.0); Neutrophils % (Auto) 78.7 % (38.0-78.0); Platelet Count 261 K/mcL (140-440); RBC 3.09 M/mcL (4.63-6.08); Red Cell Distribution Width 15.5 % (11.5-14.5); WBC 7.6 K/mcL (4.5-11.0)
[2024-05-06] MEDS: ATORVASTATIN 40 MG TABLET PO SCH (08:51)
[2024-05-06] MEDS: ASPIRIN 81 MG TAB.CHEW PO SCH (08:52)
[2024-05-07 05:52] LABS: Hemoglobin 8.2 g/dL (13.7-17.5)
[2024-05-07 06:31] LABS: ALT/SGPT 8 U/L (<40); AST/SGOT 10 U/L (<40); Albumin 2.9 gm/dL (3.2-5.2); Albumin/Globulin Ratio 1.2 (1.0-2.3); Alkaline Phosphatase 67 U/L (39-117); Bilirubin,Direct 0.5 mg/dL (<0.3); Bilirubin,Total 1.1 mg/dL (0.1-1.0); Blood Urea Nitrogen 12 mg/dL (8-23); Calcium 9.6 mg/dL (8.6-10.4); Carbon Dioxide 23 mmol/L (22-30); Chloride 105 mmol/L (96-108); Globulin 2.4 gm/dL (2.2-3.7); Glomerular Filtration Rate 84; Glucose 120 mg/dL (70-105); Lactate Dehydrogenase 107 U/L (135-225); Phosphorous 2.7 mg/dL (2.5-4.5); Potassium 3.9 mmol/L (3.3-5.1); Sodium 137 mmol/L (133-145); Triglycerides 82 mg/dL (<150); Uric Acid 5.4 mg/dL (2.5-8.0)
[2024-05-08 06:47] LABS: Hematocrit 28.1 % (40.1-51.0); Hemoglobin 8.7 g/dL (13.7-17.5)
[2024-05-08] MEDS: SUCRALFATE 1 GM/10 ML ORAL.SUSP PO PRN (11:59)
[2024-05-09 16:56] VITALS: TEMP 98.3; O2SAT 98
== END 2024-05-09 20:13 | disposition home or self-care (01) | DRG 812 ==
LOC: ED 22:24 → ICU 05-05 12:40 → MEDSUR 05-07 12:38
PROVIDERS: ADMIT Internal Medicine; ATTEND Internal Medicine